=== PATIENT | female | born 1955 | race Caucasian/White ===

== ENCOUNTER 2024-03-28 09:21 | Outpatient (CLI) | payer MEDICARE, SELFPAY ==
--- NOTE | ~2024-03-28 | XR_ITS ---
AP and lateral views of the left hip Clinical history: Pain Findings: There are 3orthopedic screws traversing the left femoral neck. No acute fracture or disloca tion seen. No hardware complication is evident.. There is minimal degenerative change of the left hip joint. Soft tissues are unremarkable. Impression: No acute abnormality. Orthopedic screws in the left femoral neck. Minimal degenerative change of the left hip joint. Reviewed, dictated and finalized at location [facility] Impression: No acute abnormality. Orthopedic screws in the left femoral neck. Minimal degenerative change of the left hip joint.
--- NOTE | ~2024-03-28 | XR_ITS ---
Lumbosacral Spine: AP, oblique, and lateral views Clinical History: Pain Findings: The normal lordotic curve is maintained. No fracture seen. There is minimal grade 1 anterol isthesis of L3 over L4. There is moderate to advanced facet arthropathy, worst from L4 through S1. Th e sacroiliac joints are normally outlined. Impression: [id number] degenerative spondylosis, as above. Minimal grade 1 retrolisthesis of L3 over L4. Reviewed, dictated and finalized at location [facility] Impression: Cpdg-[id number] degenerative spondylosis, as above. Minimal grade 1 retrolisthesis of L3 over L4.
--- OUTSIDE RECORDS SUMMARY | 2024-03-28 09:32 | XMS_ITS | Referral Summary ---
Author Organization [address] Address [address] [place] [address] Care Team Providers Care Carding Machine Feeder Name Role Phone Blanca Diego MD Primary Care Provider [phone] Allergies No known active allergies Medications lisinopril-hydroCH LOROthiazide (ZESTORETIC) 10-12.5 mg per tablet 07/29/2019 Active Zoloft 50 mg tablet 07/30/2019 Active Active Problems Problem Noted Date Diagnosed Date Epistaxis 08/06/2019 Blood in ear canal, right 08/06/2019 Social History Tobacco Use Types Packs/Day Years Used Date Smoking Tobacco: Former Smokeless Tobacco: Never Alcohol Use Standard Drinks/Week Comments Yes 0 (1 standard drink = 0.6 oz pur e alcohol) Personal Safety Answer Date Recorded Getting School Help Needed Not on file 04/23 Comments Unknown Sex and Gender Information Value Date Recorded Sex Assigned at Not on file 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 Gender Identity Not on file Sexual Orientation Not on file Last Filed Vital Signs Vital Sign Reading Time Taken Comments Blood Pressure - - Pulse - - Temperature 37 C (98.6 F) 08/06/2019 1:25 PM CDT Respiratory Rate - - Oxygen Saturation - - Inhaled Oxygen Concentration - - Weight 99.8 kg (220 lb) 08/06/2019 1:25 PM CDT Height 167.6 cm (5' 6 ) 08/06/2019 1:25 PM CDT Body Mass Index 35.51 08/06/2019 1:25 PM CDT Plan of Treatment Not on file Insurance [facility] CHOICE PLUS Care Teams Carding Machine Feeder Relationship Specialty Start Date End Date Blanca Diego MD PCP - General Family Practice 07/25/19
--- OUTSIDE RECORDS SUMMARY | 2024-03-28 09:32 | XMS_ITS | Referral Summary ---
Author Organization [facility] Address [address] [place] [address] Care Team Providers Care Secretary Receptionist Name Role Phone Scott Adan MD Primary Care Provider [phone] Shayna Florez RN Unavailable Unavailable Hawk Romero MD Unavailable UnavailJason Lara MD Unavailable Source Comments [facility],non-owned Affiliates and Associated Physician Practices is amultiple site organization consisting of ambulatory clinics and hospital sitesin [place], [place], [place] and [place]. This disclosure is being madepursuant to the Care Everywhere program and may not contain all information available regarding this patient. Last updated 17.[facility] Allergies No known active allergies Medications * Be aware that medications may not be up to date on this document. Alwaysverify current medications with the patient. Medication Sig Dispensed Refills Start Date End Date Status sertraline (ZOLOFT) 50 MG tablet Take 50 mg by mouth once daily Active simvastatin (ZOCOR) 20 MG tablet Take 20 mg by mouth at bedtime Active lisinopril (PRINIVIL; ZESTRIL) 10 MG tablet Take 10 mg by mouth once daily Active oxyCODONE-acetamin ophen (PERCOCET) 5-325 MG tablet Take 2 tablets by mouth every 6 hours 40 tablet 02/22/2017 Active Additional Information Patient not taking.Reported on 04/28/2017 docusate sodium (COLACE) 100 MG capsule Take 1 capsule by mouth 2 times daily as needed for Constipation 60 capsule 1 02/22/2017 Active Additional Information Patient not taking.Reported on 04/28/2017 ibuprofen (MOTRIN) 600 MG tablet Take 1 tablet by mouth every 6 hours as needed for Pain 60 tablet 1 02/22/2017 Active Additional Information Patient not taking.Reported on 04/28/2017 docusate sodium (COLACE) 100 MG capsule Take 1 capsule by mouth 2 times daily 60 capsule 1 02/22/2017 Active Additional Information Patient not taking.Reported on 04/28/2017 Active Problems Problem Noted Date Diagnosed Date Endometrial cancer 02/21/2017 Social History Tobacco Use Types Packs/Day Years Used Date Smoking Tobacco: Former Cigarettes Q uit: 02/21/2002 Smokeless Tobacco: Current Comments:nicorette gum Alcohol Use Standard Drinks/Week Comments Yes 0 (1 standard drink = 0.6 oz pur e alcohol) weekends Sex and Gender Information Value Date Recorded Sex Assigned at Not on file Gender Identity Female 04/18/2017 11:27 AM CDT Sexual Orientation Not on file Last Filed Vital Signs Vital Sign Reading Time Taken Comments Blood Pressure 161/84 04/28/2017 11:15 AM CDT Pulse 80 04/28/2017 11:15 AM CDT Temperature 36.5 C (97.7 F) 04/28/2017 11:15 AM CDT Respiratory Rate 15 04/28/2017 11:15 AM CDT Oxygen Saturation 97% 04/28/2017 11:15 AM CDT Inhaled Oxygen Concentration - - Weight 118.4 kg (261 lb) 04/28/2017 11:15 AM CDT Height 167.6 cm (5' 5.98 ) 04/28/2017 11:15 AM C DT Body Mass Index 42.15 04/28/2017 11:15 AM CDT Plan of Treatment Not on file Procedures Procedure Name Priority Date/Time Associated Diagnosis Comments BASIC METABOLIC PANEL (CALCIUM TOTAL) STAT 02/22/2017 5:34 AM [facility] Endometrial cancer (HCC) from Last 3 Months or Most Recently Relevant to Health Maintenance Results * (ABNORMAL) BASIC METABOLIC PANEL (CALCIUM TOTAL) (02/22/2017 5:34 AM [facility]) Glucose 127(H) 74 - 106 mg/dL 02/22/2017 6:07 AM [facility] Sodium 138 136 - 145 mmol/L 02/22/2017 6:07 AM [facility] Potassium 4.8 3.5 - 5.1 mmol/L 02/22/2017 6:07 AM [facility] Chloride 105 98 - 107 mmol/L 02/22/2017 6:07 AM [facility] CO2 29 22 - 31 mmol/L 02/22/2017 6:07 AM [facility] Calcium 7.8(L) 8.5 - 10.1 mg/dL 02/22/2017 6:07 AM [facility] Anion Gap 4(L) 8 - 16 mmol/L 02/22/2017 6:07 AM [facility] BUN 11 7 - 21 mg/dL 02/22/2017 6:07 AM [facility] Creatinine 0.73 0.50 - 1.30 mg/dL 02/22/2017 6:07 AM [facility] eGFR by MDRD >60 >60 mL/min/1.7 3m2 02/22/2017 6:07 AM [facility] eGFR by MDRD >60 >60 mL/min/1.7 3m2 02/22/2017 6:07 AM [facility] Blood BLOOD SPECIMEN / Unknown Lab Venipuncture / Unknown 02/22/2017 5:34 AM [facility] 02/22/2017 5:43 AM [facility] Nancie Solorio MD LAB - CHEMISTRY [facility]Y [facility]ER[facility] Organization Address City/State/[facility] Co de Phone Number [facility] [address] [id number] from Last 3 Months or Most Recently Relevant to Health Maintenance Advance Directives * Full Code (Latest Code Status on File) Date Activated Date Inactivated Comments 02/21/2017 8:10 PM 02/22/2017 6:04 PM Care Teams Secretary Receptionist Relationship Specialty Start Date End Date Scott Adan MD [address] [place] [address] PCP - General Family Medicine 02/21/17 Shayna Florez, RN Registered Nurse 02/21/17 Hawk Romero MD Referring Physician Surgical Oncology 04/13/17 Jason Rea MD Radiation Oncologist Radiation Oncology 04/13/17
--- OUTSIDE RECORDS SUMMARY | 2024-03-28 09:32 | XMS_ITS | Clinical Summary ---
Author Organization [email or web address] Address [address] [place] [address] Care Team Providers Care Denture Processor Name Role Phone Scott Adan MD Primary Care Provider [phone] Shayna Florez RN Unavailable Unavailable Hawk Romero MD Unavailable UnavailJason Lara MD Unavailable [phone] Source Comments [email or web address],non-owned Affiliates and Associated Physician Practices is amultiple site organization consisting of ambulatory clinics and hospital sitesin [place], [place], [place] and [place]. This disclosure is being madepursuant to the Care Everywhere program and may not contain all information available regarding this patient. Last updated 17.[email or web address] Allergies No known active allergies Medications * [...] 04/28/2017 11:15 AM CDT Plan of Treatment Health Maintenance Due Date Last Done Comments BONE DENSITY TESTING 1957 COLOGUARD (AGES 45-75) - COL ON CA SCREENING 1957 COLON MONITORING 1957 COLONOSCOPY - COLON CA SCREENING 1957 CT COLONOGRAPHY - COLON CA SCREENING 1957 Colorectal Cancer Screening 1957 FIT - COLON CA SCREENING 1957 FLEX SIG - COLON CA SCREENING 1957 MAMMOGRAM 1957 HEPATITIS C SCREENING 01/26/1975 DTAP/TDAP/TD VACCINES (1 - Tdap) 01/31/1976 PNEUMOCOCCAL VACCINE 50+ (1 of 1 - PCV) 2007 ZOSTER VACCINE (1 of 2) 2007 Respiratory Syncytial Virus (RSV) Vaccine Pt: or over 60 yrs (1 - Risk 60-74 years 1-dose series) 2017 SCREENING FOR DIABETES 02/23/2020 8, 02/21/2017 COVID-19 VACCINE (1 - 2023-2 5 season) 2023 INFLUENZA VACCINE (#1) 2023 DEPRESSION SCREENING 02/08/2024 HEPATITIS B VACCINE Aged Out No longe r eligible based on patient's age to complete this topic HIB VACCINE Aged Out No longer eligi ble based on patient's age to complete this topic HPV VACCINE Aged Out No longer eligi ble based on patient's age to complete this topic MENINGOCOCCAL (Group B) VACCINE Aged Out No longer eligible b ased on patient's age to complete this topic MENINGOCOCCAL VACCINE Aged Out No suzi nav eligible based on patient's age to complete this topic Procedures Procedure Name Priority Date/Time Associated Diagnosis Comments BASIC METABOLIC PANEL (CALCIUM TOTAL) STAT 02/22/2017 5:34 AM [facility] Endometrial cancer (HCC) from Last 3 Months or Most Recently Relevant to Health Maintenance Results * (ABNORMAL) BASIC METABOLIC PANEL (CALCIUM TOTAL) (02/22/2017 5:34 AM [facility]) Glucose 127(H) 74 - 106 mg/dL 02/22/2017 6:07 AM [facility] Sodium 138 136 - 145 mmol/L 02/22/2017 6:07 AM [facility] Potassium 4.8 3.5 - 5.1 mmol/L 02/22/2017 6:07 AM [facility] Chloride 105 98 - 107 mmol/L 02/22/2017 6:07 AM [facility] CO2 29 22 - 31 mmol/L 02/22/2017 6:07 AM [facility] Calcium 7.8(L) 8.5 - 10.1 mg/dL 02/22/2017 6:07 AM [facility] Anion Gap 4(L) 8 - 16 mmol/L 02/22/2017 6:07 AM [facility] BUN 11 7 - 21 mg/dL 02/22/2017 6:07 AM [facility] Creatinine 0.73 0.50 - 1.30 mg/dL 02/22/2017 6:07 AM [facility] eGFR by MDRD >60 >60 mL/min/1.7 3m2 02/22/2017 6:07 AM [employer] [facility] eGFR by MDRD >60 >60 mL/min/1.7 3m2 02/22/2017 6:07 AM [facility] Blood BLOOD SPECIMEN / Unknown Lab Venipuncture / Unknown 02/22/2017 5:34 AM [facility] [facility] 02/22/2017 5:43 AM [facility] [facility] [facility] Nancie Solorio MD LAB - CHEMISTRY AMY [facility]ERMIN [facility] [address] [place] [address] from Last 3 Months or Most Recently Relevant to Health Maintenance Advance Directives * Full Code (Latest Code Status on File) Date Activated Date Inactivated Comments 02/21/2017 8:10 PM 02/22/2017 6:04 PM Care Teams Denture Processor Relationship Specialty Start Date End Date Scott Adan MD [address] [place] [address] PCP - General Family Medicine 02/21/17 Shayna Florez, TREE Registered Nurse 02/21/17 Hawk Romero MD Referring Physician Surgical Oncology 04/13/17 Jason Rea MD Radiation Oncologist Radiation Oncology 04/13/17
--- OUTSIDE RECORDS SUMMARY | 2024-03-28 09:32 | XMS_ITS | Clinical Summary ---
Author Organization [place] [address] Address [address] [place] [address] Care Team Providers Care Sheep Sorter Name Role Phone Blanca Diego MD Primary Care Provider [phone] Allergies No known active allergies Medications lisinopril-hydroCH LOROthiazide (ZESTORETIC) 10-12.5 mg per tablet 07/29/2019 Active Zoloft 50 mg tablet 07/30/2019 Active Active Problems Problem Noted Date Diagnosed Date Epistaxis 08/06/2019 Blood in ear canal, right 08/06/2019 Surgical History Surgery Date Site/Laterality Comments HYSTERECTOMY HIP FRACTURE SURGERY Left ECTOPIC Medical History Medical History Date Comments Allergic rhinitis Cancer (CMS/HCC) (HCC) Hypertension Hx of radiation therapy Sinusitis Family History Medical History Relation Name Comments No Known Problems Father No Known Problems Mother Relation Name Status Comments Father Mother Social History Tobacco Use Types Packs/Day Years [...] on file 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
--- OUTSIDE RECORDS SUMMARY | 2024-03-28 09:32 | XMS_ITS | Patient Health Summary ---
Author Organization [facility] Address [address] [place] [address] Care Team Providers Care Cytogeneticist Name Role Phone Scott Adan MD Primary Care Provider [phone] Shayna Florez RN Unavailable Unavailable Hawk Romero MD Unavailable UnavailJason Lara MD Unavailable [phone] Note from [facility],non-owned Affiliates and Associated Physician Practices is amultiple site organization consisting of ambulatory clinics and hospital sitesin [place], [place], [place] and [place]. This disclosure is being madepursuant to the Care Everywhere program and may not contain all information available regarding this patient. Last updated 17.[facility] Allergies No known active allergies Medications * Be aware that medications may not be up to date on this document. Alwaysverify current medications with the patient. * sertraline (ZOLOFT) 50 MG tablet Take 50 mg by mouth once daily * simvastatin (ZOCOR) 20 MG tablet Take 20 mg by mouth at bedtime * lisinopril (PRINIVIL; ZESTRIL) 10 MG tablet Take 10 mg by mouth once daily * oxyCODONE-acetaminophen (PERCOCET) 5-325 MG tablet(Started 02/22/2017) Take 2 tablets by mouth every 6 hours * docusate sodium (COLACE) 100 MG capsule(Started 02/22/2017) Take 1 capsule by mouth 2 times daily as needed for Constipation 1 refill remaining * ibuprofen (MOTRIN) 600 MG tablet(Started 02/22/2017) Take 1 tablet by mouth every 6 hours as needed for Pain 1 refill remaining * docusate sodium (COLACE) 100 MG capsule(Started 02/22/2017) Take 1 capsule by mouth 2 times daily 1 refill remaining Active Problems Problem Noted Date Diagnosed Date [...] Mass Index 42.15 04/28/2017 11:15 AM CDT Procedures * RADIATION ONCOLOGY EVALUATION(Performed 05/25/2017) * RADIATION ONCOLOGY EVALUATION(Performed 05/18/2017) * RADIATION ONCOLOGY EVALUATION(Performed 05/12/2017) * LAB HISTORICAL RESULTS-ONBASE(Performed 04/20/2017) * MMR SAMUELS SYNDROME IHC(Performed 03/23/2017) Performed for Endometrial cancer (HCC) * CARDIAC RHYTHM STRIP ORDER(Performed 02/23/2017) * BASIC METABOLIC PANEL (CALCIUM TOTAL)(Performed 02/22/2017) Performed for Endometrial cancer (HCC) * CREATININE URINE RANDOM(Performed 02/22/2017) Performed for Endometrial cancer (HCC) * SODIUM URINE RANDOM(Performed 02/22/2017) Performed for Endometrial cancer (HCC) * PATHOLOGY TISSUE EXAM (STL)(Performed 02/21/2017) Performed for Endometrial cancer (HCC) * ENDOTRACHEAL TUBE NOTE(Performed 02/21/2017) * ROBOTIC ASSISTED LYMPH NODE DISSECTION(Performed 02/21/2017) Performed for Endometrial cancer (HCC) * CYSTOSCOPY INSERTION OF LIGHTED URETERAL STENT(Performed 02/21/2017) Performed for Endometrial cancer (HCC) * ROBOTIC ASSISTED HYSTERECTOMY TOTAL(Performed 02/21/2017) Performed for Endometrial cancer (HCC) * TYPE + SCREEN PANEL(Performed 02/21/2017) Performed for Preop examination * URINE MICROSCOPIC ONLY(Performed 02/21/2017) Performed for Preop examination * URINALYSIS REFLEX TO MICROSCOPIC NO CULTURE(Performed 02/21/2017) Performed for Preop examination * COMPREHENSIVE METABOLIC PANEL(Performed 02/21/2017) Performed for Preop examination * CBC W AUTO DIFFERENTIAL(Performed 02/21/2017) Performed for Preop examination * BLOOD TYPE VERIFICATION(Performed 02/21/2017) * PATHOLOGY/GENETICS HISTORICAL-ONBASE(Performed 02/21/2017) * PATHOLOGY/GENETICS HISTORICAL-ONBASE(Performed 02/21/2017) * PATHOLOGY/GENETICS HISTORICAL-ONBASE(Performed 02/21/2017) Results * RADIATION ONCOLOGY EVALUATION (05/25/2017 12:00 PM CDT) 05/25/2017 12:0 0 PM CDT Narrative Procedure Note Jason Rea MD - 05/26/2017 2:22 AM CDT [facility] Department of Radiation Oncology Procedure Note PATIENT NAME: GRIFFIN SNEED MR#: [id number] AGE: 62 CSN: [id number] ADMIT: 05/11/2017 : 1955 DATE: 05/25/2017 ROOM#: Ms. Sneed underwent her third and final vaginal cylinder implant todeliver 700 cGy to a depth of 0.5 cm over a length of 3 cm with a 2 cm indiameter vaginal cylinder. A 2 cc of bladder received 59% of the prescribed dose,2 cc of the rectum received 60% of the prescribed dose. Total treatment timewas 216 seconds. She tolerated her radiation well without significantevent. There was no additional radiation detected before and after the procedure.As she has adequate followup scheduled with Dr. Romero, she will continue to follow up with him. She may return to our department anytime on ap.r.n. basis. Jason Rea MD RGS/MODL /[id number] Radiation Oncology - Jason Rea MD RADIATION ONCOLOGY O [facility] * RADIATION ONCOLOGY EVALUATION (05/18/2017 12:00 PM CDT) 05/18/2017 12:0 0 PM CDT Narrative Procedure Note Jason Rea MD - 05/18/2017 12:39 PM CDT [facility] Department of Radiation Oncology Procedure Note PATIENT NAME: GRIFFIN SNEED MR#: [id number] AGE: 62 CSN: [id number] ADMIT: 05/11/2017 : 1955 DATE: 05/18/2017 ROOM#: Ms. Sneed underwent the second of 3-planned vaginal cylinder implantsto deliver 700 cGy to a depth of 0.5 cm. A 2 cm in diameter vaginal cylinderwas used and loaded to a length of 3 cm. A 2 cc of bladder received 60% of prescribed dose, a 2 cc of the rectum received 40.5% of the prescribeddose. Total treatment time was 202.7 seconds. She tolerated the procedurewell. She was surveyed both before and after the procedure. No additionalradiation was detected. She is to return next week for her third and finalimplant. MD ELIZABETH Briceño/BORIS /[id number] Radiation Oncology - Jason Rea MD RADIATION ONCOLOGY O [facility] * RADIATION ONCOLOGY EVALUATION (05/12/2017 8:11 AM CDT) Narrative Procedure Note Jason Rea MD - 05/12/2017 5:14 AM CDT [facility] Department of Radiation Oncology Procedure Note PATIENT NAME: GRIFFIN SNEED MR#: [id number] AGE: 62 CSN: [id number] ADMIT: 05/11/2017 : 1955 DATE: ROOM#: Ms. Sneed presented for the first of 3 planned HDR vaginal cylinder implants. A 2 cm in diameter vaginal cylinder was used loaded to a lengthof 3 cm and treated to 700 cGy to a depth of 0.5 cm. A 2 cc of bladderreceived 64% of the prescribed dose. A 2 cc of the rectum received 75% ofprescribed dose. Total treatment time was 475 seconds. She tolerated the procedurewell without significant event and/or complication. She is to return to our department in 1 week for her second implant or sooner should the needarise. Jason Rea MD RGS/MODL /[id number] Radiation Oncology - Jsaon Rea MD RADIATION ONCOLOGY O [place] * LAB HISTORICAL RESULTS-ONBASE (04/20/2017) 04/20/2017 Historical Provider LAB - CHEMISTRY O [place] [address] * MMR SAMUELS SYNDROME IHC (03/23/2017 3:07 PM INDEPENDENT VIDEO PRODUCER) MMR Samuels Syndrome IHC 04/20/2017 10:22 AM CDT [facility] REF LAB NON INTERF Comment:See Pathology Case R eport. [id number] Pathology/Cytolo gy TISSUE SPECIMEN / Unknown Collection / Unknown 03/23/2017 3:07 PM INDEPENDENT VIDEO PRODUCER 03/23/2017 3:07 PM INDEPENDENT VIDEO PRODUCER Hawk Romero MD LAB - PATHOLOGY/CYT OLOGY ORDERABLES Performing Organization Address City/[facility]/ZIP Co de Phone Number [facility] REF LAB NON INTERF [address] [phone] * CARDIAC RHYTHM STRIP ORDER (02/23/2017 10:29 PM INDEPENDENT VIDEO PRODUCER) Narrative 02/23/2017 10:29 PM INDEPENDENT VIDEO PRODUCER Ordered by an unspecified provider. Scanned Document CARDIAC SERVICES ORD ERABLES * (ABNORMAL) BASIC METABOLIC PANEL (CALCIUM TOTAL) (02/22/2017 5:34 AM INDEPENDENT VIDEO PRODUCER) Glucose 127(H) 74 - 106 mg/dL 02/22/2017 6:07 AM [facility] Sodium 138 136 - 145 mmol/L 02/22/2017 6:07 AM [facility] Potassium 4.8 3.5 - 5.1 mmol/L 02/22/2017 6:07 AM [facility] Chloride 105 98 - 107 mmol/L 02/22/2017 6:07 AM [facility] CO2 29 22 - 31 mmol/L 02/22/2017 6:07 AM [facility] Calcium 7.8(L) 8.5 - 10.1 mg/dL 02/22/2017 6:07 AM [facility] Anion Gap 4(L) 8 - 16 mmol/L 02/22/2017 6:07 AM [facility] BUN 11 7 - 21 mg/dL 02/22/2017 6:07 AM [facility] Creatinine 0.73 0.50 - 1.30 mg/dL 02/22/2017 6:07 AM [facility] eGFR by MDRD >60 >60 mL/min/1.7 3m2 02/22/2017 6:07 AM [facility] eGFR by MDRD >60 >60 mL/min/1.7 3m2 02/22/2017 6:07 AM [facility] Blood BLOOD SPECIMEN / Unknown Lab Venipuncture / Unknown 02/22/2017 5:34 AM INDEPENDENT VIDEO PRODUCER 02/22/2017 5:43 AM [facility] Nancie Solorio MD LAB - CHEMISTRY AMY FERMIN [facility] [address] [place] [address] * SODIUM URINE RANDOM (02/22/2017 2:52 AM INDEPENDENT VIDEO PRODUCER) Sodium Urine 31 mmol/L 02/22/2017 3:38 AM INDEPENDENT VIDEO PRODUCER [facility] Urine URINE SPECIMEN OBTAINED BY CLEAN CATCH PROCEDURE / Unknown Collection / Unknown 02/22/2017 2:52 AM INDEPENDENT VIDEO PRODUCER 02/22/2017 3:10 AM INDEPENDENT VIDEO PRODUCER Nancie Solorio MD LAB - URINE CHEMISTR Y ORDERABLES Performing Organization Address [facility] Co de Phone Number [facility] [address] [place] [address] * CREATININE URINE RANDOM (02/22/2017 2:52 AM INDEPENDENT VIDEO PRODUCER) Creatinine Urine 230 mg/dL 02/22/2017 3:38 AM INDEPENDENT VIDEO PRODUCER [facility] Urine URINE SPECIMEN OBTAINED BY CLEAN CATCH PROCEDURE / Unknown Collection / Unknown 02/22/2017 2:52 AM INDEPENDENT VIDEO PRODUCER 02/22/2017 3:10 AM INDEPENDENT VIDEO PRODUCER Nancie Solorio MD LAB - URINE CHEMISTR Y ORDERABLES Performing Organization Address [facility] Co de Phone Number [facility] [address] [place] [phone] * GROSS + MICRO EXAM (STL) (02/21/2017 2:19 PM INDEPENDENT VIDEO PRODUCER) Case Report Surgical Pathology Report Case: [id number] Authorizing Provider: Hawk Romero MD Collected: 02/21/2017 02:19 PM Ordering Location: [facility] INTRA Received: 02/21/2017 02:45 PM Pathologist: Jacqueline Garcia MD Specimens: A) - Uterus w BSO, uterus, cervix, bilateral tubes and ovaries B) - Pelvic Lymph Nodes, pelvic lymph nodes 8 9:47 AM CDT [facility] Addendum 2 Correction: In the microscopic description, the second sentence in the fifth line should read: There is no evidence of lymphovascular permeation. 8 9:47 AM CDT [facility] Addendum electronically signed by Myesha Jauregui MD on 04/28/2017 at 9:47 AM Addendum 1 Results of immunohistochemistry for the mismatch repair (MMR) proteins (MLH1, PMS2, MSH2, MSH6) are as follows: MLH1: No loss of expression (tumor stained: 10%; Intensity: moderate to strong ) PMS2: No loss of expression (tumor stained: 10%; Intensity: moderate to strong ) MSH2: No loss of expression (tumor stained: 15%; Intensity: moderate to strong ) MSH6: No loss of expression (tumor stained: 25%; Intensity: moderate to strong ) All four proteins expressed (Normal): The invasive carcinoma cells demonstrate the presence of normal MLH1, PMS2, MSH2, and MSH6 protein expression. Expression of all four proteins indicates that mismatch repair enzymes are intact but does not entirely exclude Samuels syndrome, as some patients may have mutation that leads to a non-functional protein with retained antigenicity. Defects in lesser-known mismatch repair enzymes may also lead to similar results, which are nonetheless, rare. If clinically indicated, a genetic consultation may be of benefit for the individual and/or family to further discuss the implications of these findings. 8 9:[address] [facility] Addendum electronically signed by Myesha Jauregui MD on 03/29/2017 at 4:17 PM Final Diagnosis 1. Uterus with bilateral tubes and ovaries: -- Endometrioid adenocarcinoma, grade 3 -- Focal myoinvasion less than 1 mm -- pT1a,pN0,pm-not applicable FIGO1A -- No evidence of angiolymphatic permeation by tumor -- Cervix - no tumor involvement -- Right fallopian tube and ovary - no pathologic changes -- Left fallopian tube and ovary - no pathologic changes -- 2. Pelvic lymph nodes, dissection: -- Negative for malignancy (19 of 19). SEE SYNOPTIC REPORT 8 9:[address] [facility] Gross Description The specimen is received fresh in one container labeled with the patient's name Griffin Sneed and uterus, cervix, bilateral tubes and ovaries and consists of a 176.2 gm uterine cervical complex with attached bilateral fallopian tubes and ovaries. The uterine cervical complex measures 10.4 cm from fundus to cervix x 6.5 cm from cornu to cornu x 6.0 cm from anterior to posterior. The serosa is pink-bush smooth and glistening. The cervix is white-pink and glistening and measures 3.4 x 2.4 cm with a central oval shaped os measuring 0.6 cm in diameter. The white fallopian tube is purple-pink and fimbriated while the left fallopian tube is purple-pink with no fimbria attached. There are multiple paratubal cysts attached to the right fallopian tube ranging in greatest dimension from 0.6 to 0.2 cm and filled with thin translucent fluid. The right tube measures 7.5 cm in length x 0.6 cm in diameter while the left fallopian tube measures 1.4 cm in length x 0.5 cm in diameter. The ovaries are pink-bush and nodular. The right ovary weighs 4.2 gm and measures 3.5 x 1.7 x 1.2 cm. The left ovary is 4.3 gm, and measures 3.5 x 2. X 1.2 cm. Cut surface through the cervix reveals rubbery, pink-bush tissue. The uterus is bisected revealing a 3.2 x 5.4 cm triangular shaped endometrial cavity with shaggy and roughened, pink-bush endometrium measuring up to 1.5 cm in thickness. A 3.2 x 2.9 x 1.5 cm bush-pink mass is identified on cut surface through the endometrial cavity. The mass does not grossly invade through 50% of the myometrium. The remaining cut surface demonstrates rubbery, pink-bush myometrium measuring up to 2.4 cm in thickness on average. A access service representative section of the mass in the anterior endomyometrium is submitted for frozen section as FSA1. The mass appears more invasive into the anterior half of the uterus than the posterior half of the uterus. The cut surface through the fallopian tubes reveals unremarkable pinpoint lumens. Cut surface through the ovaries reveals nodule, mottled, bush-pink ovarian tissue with no gross evidence of mass or tumor formation. Dental Detail Representative sections are submitted as follows: A2 - 12 o'clock cervix A3 - 6 o'clock cervix A4 - Additional section of anterior endomyometrium and its greatest thickness of the mass A5 and A6 - Posterior endomyometrium A7 and A8 - Right fallopian tube and ovary A9 and A10 - Left fallopian tube and ovary. MR/scs The specimen is received fixed in formalin in one container, labeled with the patient's name, Griffin Sneed, and pelvic lymph nodes, consists of multiple portions of irregular, yellow fatty tissue measuring 7.4 x 7.2 x 1.1 cm in aggregate. The specimen is thoroughly searched for lymph nodes revealing numerous lymph nodes ranging from 2.1 to 0.4 cm in greatest dimension. The lymph nodes are entirely submitted in cassettes B1-B6. CIRO/catherine 8 9:[address] [facility] Microscopic Description Permanent section FSA1 is confirmed. pT1a0 pN - not applicable, FIGO IA The endometrium contains a large endometrioid adenocarcinoma, grade 3. It is characterized by fused endometrial glands composed of cells with vesicular nuclei and conspicuous nucleoli. A cribriform arrangement of glands with focal necrosis is identified. Solid growth appears to be greater than 50%. There is no evidence of serous or clear cell carcinoma. The tumor has a pushing rounded advancing edge with microfoci most consistent with very early, less than 1 mm of invasion. There is angiolymphatic permeation by tumor. The uninvolved endometrium reveals a proliferative pattern. The tumor does not extend to the cervix, it shows no evidence of dysplasia or neoplasia. The right tube and ovary show no pathologic changes. The left tube and ovary is likewise unremarkable. A total of 19 pelvic lymph nodes are examined and reveal no evidence of malignancy. Shaylee 8 9:[address] [facility] Disclaimer All histochemical and/or immunohistochemical results are interpreted with controls that demonstrate appropriate staining reactions before reporting results. Note on use of immunocytochemistry reagents: This test was developed and its performance characteristic determined by [facility], Department of Laboratory Medicine. It has not been cleared or approved by the U.S. Food and Drug Administration (FDA). The FDA has determined that such clearance or approval is not necessary. The test is used for clinical purpose. It should not be regarded as investigational or for research. This laboratory is certified to perform high complexity testing. 8 9:[address] [facility] Synoptic Report ENDOMETRIUM (ENDOMETRIUM: HYSTERECTOMY - All Specimens) SPECIMEN Procedure: Total abdominal hysterectomy and bilateral salpingo-oophorectomy Hysterectomy Type: Laparoscopic, robotic-assisted Specimen Integrity: Intact TUMOR Tumor Site: Endometrium Histologic Type: Endometrioid carcinoma, NOS Histologic Grade: FIGO grade 3 Tumor Size: Greatest dimension in Centimeters (cm): 3.2 Centimeters (cm) Additional Dimension in Centimeters (cm): 2.9 Centimeters (cm) Additional Dimension in Centimeters (cm): 1.5 Centimeters (cm) Myometrial Invasion: Present Depth of Invasion in Millimeters (mm): 1 Millimeters (mm) Myometrial Thickness in Millimeters (mm): 1.5 Millimeters (mm) Percentage of Myometrial Invasion: 1 % Adenomyosis: Not identified Uterine Serosa Involvement: Not identified Lower Uterine Segment Involvement: Not identified Cervical Stromal Involvement: Not identified Other Tissue / Organ Involvement: Not applicable Peritoneal Ascitic Fluid: Not submitted / unknown Lymphovascular Invasion: Not identified MARGINS LYMPH NODES Regional Lymph Nodes: Pelvic Lymph Nodes: Number of Pelvic Nodes with Macrometastasis: 0 Number of Pelvic Nodes with Micrometastasis: 0 Number of Pelvic Nodes with Isolated Tumor Cells: 0 Laterality of Pelvic Node(s) with Tumor: Cannot be determined Total Number of Pelvic Node(s) Examined (sentinel and nonsentinel): 19 Number of Pelvic [place] Nodes Examined: 0 Laterality of Pelvic Node(s) Examined: Cannot be determined Para-aortic Lymph Nodes: No para-aortic nodes submitted or found PATHOLOGIC STAGE CLASSIFICATION (pTNM, AJCC 8th Edition) Primary Tumor (pT): pT1a Category (pN): pN0 FIGO STAGE FIGO Stage: IA ADDITIONAL FINDINGS Additional Pathologic Findings: None identified 8 9:47 AM T [facility] Embedded Images 8 9:[address] [facility] Pathology/Cytology HYSTERECTOMY AND BILATERAL SALPINGO-OOPHORECTO MY SPECIMEN / Unknown 02/21/2017 2:19 PM INDEPENDENT VIDEO PRODUCER 02/21/2017 2:45 PM INDEPENDENT VIDEO PRODUCER Miscellaneous samples (specimen) PELVIC LYMPH NODES SAMPLING / Unknown 02/21/2017 3:17 PM INDEPENDENT VIDEO PRODUCER 02/22/2017 8:02 AM INDEPENDENT VIDEO PRODUCER Hawk Romero MD LAB - PATHOLOGY/CYT OLOGY ORDERABLES [facility] [address] [place] [address] * (ABNORMAL) URINALYSIS ROUTINE AUTO Urine Clean Catch (02/21/2017 9:53 AM INDEPENDENT VIDEO PRODUCER) Color UA Yellow Straw, Yellow 02/21/2017 12:19 PM INDEPENDENT VIDEO PRODUCER [facility] Clarity UA Slt Cloudy(A) Clear 02/21/2017 12:19 PM [facility] Glucose UA Negative Negative 02/21/2017 12:19 PM [facility] Bilirubin UA Negative Negative 02/21/2017 12:19 PM [facility] Ketone UA Negative Negative 02/21/2017 12:19 PM [facility] Specific [place] UA 1.023 1.005 - 1.030 02/21/2017 12:19 PM [facility] Blood UA 2+(A) Negative 02/21/2017 12:19 PM [facility] pH UA 6.0 5.0 - 8.0 pH 02/21/2017 12:19 PM [facility] Protein UA Negative Negative 02/21/2017 12:19 PM [facility] Urobilinogen UA Negative Negative mg/dL 02/21/2017 12:19 PM [facility] Nitrite UA Negative Negative 02/21/2017 12:19 PM [facility] Leukocyte UA Trace(A) Negative 02/21/2017 12:19 PM [facility] Urine Microscopy Urine microscopy to follow 02/21/2017 12:19 PM [facility] Urine URINE SPECIMEN OBTAINED BY CLEAN CATCH PROCEDURE / Unknown Collection / Unknown 02/21/2017 9:53 AM INDEPENDENT VIDEO PRODUCER 02/21/2017 11:59 AM [facility] Narrative [facility] - 02/21/2017 12:19 PM INDEPENDENT VIDEO PRODUCER Authorizing Provider Result Ronen Romero MD LAB - URINALYSIS OR DERABLES Performing Organization Address City/State/[facility] Co de Phone Number [facility] [address] [place], [place] [id number] * (ABNORMAL) URINALYSIS MICROSCOPIC ONLY (02/21/2017 9:53 AM INDEPENDENT VIDEO PRODUCER) RBC UA 0-5 0-5, None Seen # /hpf 02/21/2017 12:27 PM [facility] WBC UA 6-10(A) 0-5, None Seen # /hpf 02/21/2017 12:27 PM [facility] Bacteria UA None Seen None Seen 02/21/2017 12:27 PM [facility] Squamous Epithelial Cells 6-10(A) None Seen, 0-2, 3-5 /hpf 02/21/2017 12:27 PM [facility] Mucus UA 3+ /LPF 02/21/2017 12:27 PM [facility] Urine URINE SPECIMEN OBTAINED BY CLEAN CATCH PROCEDURE / Unknown Collection / Unknown 02/21/2017 9:53 AM INDEPENDENT VIDEO PRODUCER 02/21/2017 11:59 AM INDEPENDENT VIDEO PRODUCER Narrative [facility] - 02/21/2017 12:27 PM INDEPENDENT VIDEO PRODUCER Hawk Romero MD LAB - URINALYSIS OR DERABLES Performing Organization Address City/[facility]/ZIP Co de Phone Number [facility] [address] [place] [address] * TYPE + SCREEN PANEL (02/21/2017 9:53 AM INDEPENDENT VIDEO PRODUCER) ABO A 02/21/2017 10:49 AM [facility] Rh Type Positive 02/21/2017 10:49 AM [facility] Antibody Screen Negative 02/21/2017 10:49 AM [facility] Blood Bank BLOOD SPECIMEN / Unknown Venipuncture / Unknown 02/21/2017 9:53 AM INDEPENDENT VIDEO PRODUCER 02/21/2017 10:09 AM INDEPENDENT VIDEO PRODUCER Hawk Romero MD LAB - BLOOD BANK OR DERABLES Performing Organization Address [facility] Co de Phone Number [facility] B[facility] [address] [place] [address] * (ABNORMAL) CBC W AUTO DIFFERENTIAL (02/21/2017 9:53 AM INDEPENDENT VIDEO PRODUCER) WBC 8.2 4.4 - 10.7 x10E9/L 02/21/2017 10:15 AM [facility] WBC Corrected x10E9/L 02/21/2017 10:15 AM [facility] RBC 4.04 3.80 - 5.20 x10E12/L 02/21/2017 10:15 AM [facility] Hemoglobin 12.2 12.0 - 15.6 gm/dL 02/21/2017 10:15 AM [facility] Hematocrit 37.0 35.9 - 45.5 % 02/21/2017 10:15 AM [facility] MCV 91.6 80.7 - 98.3 fl 02/21/2017 10:15 AM [facility] MCH 30.2 26.7 - 34.0 pg 02/21/2017 10:15 AM [facility] MCHC 33.0 30.8 - 35.9 gm/dL 02/21/2017 10:15 AM [facility] Platelet Count 250 153 - 416 x10E9/L 02/21/2017 10:15 AM [facility] RDW-CV 12.0(L) 12.1 - 14.9 % 02/21/2017 10:15 AM [facility] MPV 9.1(L) 9.4 - 12.9 fl 02/21/2017 10:15 AM [facility] Neutrophils % 62.7 44.0 - 73.0 % 02/21/2017 10:15 AM [facility] Lymphocytes % 23.8 20.0 - 43.0 % 02/21/2017 10:15 AM [facility] Monocytes % 8.4 5.0 - 13.0 % 02/21/2017 10:15 AM [facility] Eosinophils % 3.9 0.0 - 6.0 % 02/21/2017 10:15 AM [facility] Basophils % 0.6 0.0 - 2.0 % 02/21/2017 10:15 AM [facility] Immature Granulocytes 0.6 0 - 1 % 02/21/2017 10:15 AM [facility] Neutrophil Absolute 5.16 2.01 - 7.14 x10E9/L 02/21/2017 10:15 AM [facility] Lymphocytes Absolute 1.96 1.07 - 3.94 x10E9/L 02/21/2017 10:15 AM [facility] Monocytes Absolute 0.69 0.26 - 1.07 x10E9/L 02/21/2017 10:15 AM [facility] Eosinophils Absolute 0.32 0 - 0.47 x10E9/L 02/21/2017 10:15 AM [facility] Basophils Absolute 0.05 0 - 0.08 x10E9/L 02/21/2017 10:15 AM [facility] Immature Granulocytes Absolute 0.05 0.00 - 0.06 x10E9/L 02/21/2017 10:15 AM [facility] nRBC Auto 0 /100 WBC 02/21/2017 10:15 AM [facility] Blood BLOOD SPECIMEN / Unknown Venipuncture / Unknown 02/21/2017 9:53 AM [facility] 02/21/2017 10:09 AM [facility] Narrative Authorizing Provider Result Ronen Romero MD LAB - HEMATOLOGY OR DERABLES [facility] [address], [place] [id number] * (ABNORMAL) COMPREHENSIVE METABOLIC PANEL (02/21/2017 9:53 AM [facility]) Glucose 136(H) 74 - 106 mg/dL 02/21/2017 10:37 AM [facility] Sodium 138 136 - 145 mmol/L 02/21/2017 10:37 AM [facility] Potassium 4.5 3.5 - 5.1 mmol/L 02/21/2017 10:37 AM [facility] Chloride 105 98 - 107 mmol/L 02/21/2017 10:37 AM [facility] CO2 28 22 - 31 mmol/L 02/21/2017 10:37 AM [facility] Calcium 8.3(L) 8.5 - 10.1 mg/dL 02/21/2017 10:37 AM [facility] Anion Gap 5(L) 8 - 16 mmol/L 02/21/2017 10:37 AM [facility] BUN 10 7 - 21 mg/dL 02/21/2017 10:37 AM [facility] Creatinine 0.74 0.50 - 1.30 mg/dL 02/21/2017 10:37 AM [facility] Alkaline Phosphatase 126 38 - 126 U/L 02/21/2017 10:37 AM [facility] ALT 112(H) 13 - 61 U/L 02/21/2017 10:37 AM [facility] AST 139(H) 5 - 40 U/L 02/21/2017 10:37 AM [facility] Protein Total 7.8 6.4 - 8.2 gm/dL 02/21/2017 10:37 AM [facility] Albumin 3.5 3.4 - 5.0 gm/dL 02/21/2017 10:37 AM [facility] Bilirubin Total 0.4 0.2 - 1.0 mg/dL 02/21/2017 10:37 AM INDEPENDENT VIDEO PR[employer]UCER [facility] eGFR by MDRD >60 >60 mL/min/1.7 3m2 02/21/2017 10:37 AM IN[employer]ENT V[employer] [facility] eGFR by MDRD >60 >60 mL/min/1.7 3m2 02/21/2017 10:37 AM [facility] Blood BLOOD SPECIMEN / Unknown Venipuncture / Unknown 02/21/2017 9:53 AM [employer] 02/21/2017 10:09 AM INDEP[employer]ENT VIDEO PRODUCER Hawk Romero MD LAB - CHEMISTRY ORD ERABLES Performing Organization Address City/[facility] Co de Phone Number [facility] [address] [place] [address] * BLOOD TYPE VERIFICATION (02/21/2017 9:50 AM INDEPENDENT VIDEO PRODUCER) ABO A 02/21/2017 10:49 AM INDEPENDENT VIDEO PRODUCER [facility] Rh Type Positive 02/21/2017 10:49 AM [facility] Comment:History check perfor med. No retype required. Blood Bank BLOOD SPECIMEN / Unknown 02/21/2017 9:50 AM [employer]ENT V[employer]UC[employer] 02/21/2017 10:20 AM IN[employer]ENT VIDEO PRODUCER Hawk Romero MD LAB - BLOOD BANK OR DERABLES Performing Organization Address [facility] Co de Phone Number [facility] [address] [place] [address] * PATHOLOGY/GENETICS HISTORICAL-ONBASE (02/21/2017) Only the most recent of3 resultswithin the time period is included. 02/21/2017 Historical Provider LAB - CHEMISTRY O RDERABLES Performing Organization Address City/[facility]/ZIP Co de Phone Number [phone] [place] [address], [facility] Care Teams Cytogeneticist Relationship Specialty Start Date End Date Scott Adan MD [address] [place] [address] PCP - General Family Medicine 02/21/17 Shayna Florez, RN Registered Nurse 02/21/17 Hawk Romero MD Referring Physician Surgical Oncology 04/13/17 Jason Rae MD Radiation Oncologist Radiation Oncology 04/13/17
== END 2024-03-28 09:22 | disposition home or self-care (01) ==
PROVIDERS: PCP Family Medicine; Visit Provider Family Medicine
DX: M47.816 Spondylosis without myelopathy or radiculopathy, lumbar region (principal); M43.17 Spondylolisthesis, lumbosacral region; M25.552 Pain in left hip; Z96.7 Presence of other bone and tendon implants; Z96.649 Presence of unspecified artificial hip joint; Z96.60 Presence of unspecified orthopedic joint implant
CPT/HCPCS: 72110; 73502

== ENCOUNTER 2024-04-05 16:39 | Emergency (ER) | payer MEDICARE, SELFPAY ==
[2024-04-05 16:41] VITALS: BP 147/97; PULSE 76; RESP 20; TEMP 36.4; O2SAT 98
--- NOTE | 2024-04-05 17:46 | ED.EXTPRO ---
HPI - Extremity Problem General Chief complaint: Extremity Problem,Nontraumatic <Shazia Godfrey PA-C - Last Filed: 04/06/24 09:30> Stated complaint: pain to Left upper thigh <Shazia Godfrey PA-C - Last Filed: 04/06/24 09:30> Time Seen by Provider: 04/05/24 17:46 <Shazia Godfrey PA-C - Last Filed: 04/06/24 09:30> Focused HPI: This is a 69 year old female that presents to the ER for left lower extremity pain. The pain starts in her left groin radiates down into the knee. Denies fever, swelling, redness. No known recent injuries. She is unable to bear weight due to pain. GENERAL: Well-appearing, well-nourished, and in no acute distress. HEAD: Normocephalic, atraumatic. CHEST: Clear to auscultation. ?No respiratory distress. HEART: Regular rate and rhythm.? NEURO: ?Alert and oriented x3. Patient screened in triage and initial orders placed.? ?Additional care and disposition to be based upon?diagnostic testing and treatment. <Shazia Godfrey PA-C - Last Filed: 04/06/24 09:30> Focused HPI: This is a 69 year old female that presents to the ER for left lower extremity pain. The pain starts in her left groin radiates down into the knee. Denies fever, swelling, redness. No known recent injuries. She is unable to bear weight due to pain. GENERAL: Well-appearing, well-nourished, and in no acute distress. HEAD: Normocephalic, atraumatic. CHEST: Clear to auscultation. ?No respiratory distress. HEART: Regular rate and rhythm.? NEURO: ?Alert and oriented x3. Patient screened in triage and initial orders placed.? ?Additional care and disposition to be based upon?diagnostic testing and treatment. <Roma Luque APRN - Last Filed: 04/05/24 23:29> History of Present Illness HPI Narrative: I agree with the assessment and documentation of Shazia Godfrey PA-C. <Roma Luque APRN - Last Filed: 04/05/24 23:29> Related Data Home medications: Home Medications ?Medication ?Instructions ?Recorded ?Confirmed ?Last Taken ?Type [id number]-[id number] 18 mg-FA 400 tablet PO 01/20/22 02/27/24 Unknown History mcg-calcium 500 mg-vit K 50 mcg tablet (Women's Multivitamin) <Shazia Godfrey PA-C - Last Filed: 04/06/24 09:30> Allergies/Adverse reactions: Allergies Allergy/AdvReac Type Severity Reaction Status Date / Time No Known Allergies Allergy Verified 04/05/24 16:40 <Shazia Godfrey PA-C - Last Filed: 04/06/24 09:30> Review of Systems Review of Systems: All systems reviewed & are unremarkable except as noted in HPI and below <Roma Luque APRN - Last Filed: 04/05/24 23:29> [facility] Past Medical History Medical History: Medical History Actinic keratosis Benign hypertension ALEENA (generalized anxiety disorder) Depression Hypertension Osteopenia Hypercholesterolemia <Shazia Godfrey PA-C - Last Filed: 04/06/24 09:30> Surgical History Surgical History: Surgical History Hx of dilation and curettage History of rectal polypectomy History of hysteroscopy (~01/17/17) <Shazia Godfrey PA-C - Last Filed: 04/06/24 09:30> Family History Family History: Family History Father Family history of chronic obstructive pulmonary disease <Shazia Godfrey PA-C - Last Filed: 04/06/24 09:30> Social History Social History: Social History Smoking status: Never smoker Second hand tobacco smoke exposure: No Smoking end date: 02/08/96 Alcohol intake: current Alcohol use details: consumes 3 beers weekly Substance use: never Substance use type: does not use Lack of Transportation: No Lack of Food: Never True Current Housing: I Have Housing Concerned About Future Housing: No Difficulty Paying Gas/Electric Bills: No Difficulty Paying for Meds: No Currently Unemployed: No Education: High School Diploma/GED Difficulty w/ Childcare or Family Care: No Gender identity (if verbalized by the patient): Female <Shazia Godfrey PA-C - Last Filed: 04/06/24 09:30> Exam Narrative: GENERAL: Well appearing, well-nourished, non-toxic, in no acute distress. HEAD: Normocephalic, atraumatic. NECK: Supple. No adenopathy, no masses. RESPIRATORY: Airway patent, respirations nonlabored. Clear to auscultation bilaterally, no rales, rhonchi, wheezing. CARDIOVASCULAR: Regular rate and rhythm without murmurs, rubs, or gallops. Peripheral pulses 2+ and equal bilaterally. ABDOMINAL: Soft, nontender, nondistended, no hepatosplenomegaly. Normoactive BS. MUSCULOSKELETAL: Moves all extremities. Strength/ROM intact without gross deformities. SKIN: Warm, dry, normal color. No rashes. No pitting edema NEURO: A&O X3. Speech clear. Cranial nerves intact. No ataxic movements. + strength extension/flexion both extremities PSYCHIATRIC: Appropriate mood and affect. Normal interaction. <Roma Luque APRN - Last Filed: 04/05/24 23:29> Course Vital Signs Vital signs: Vital Signs Temperature 97.6 F 04/05/24 16:41 Pulse Rate 76 04/05/24 16:41 Respiratory Rate 20 04/05/24 16:41 Blood Pressure 147/97 H 04/05/24 16:41 Pulse Oximetry 98 04/05/24 16:41 Oxygen Delivery Room Air 04/05/24 16:41 Temperature 97.8 F 04/05/24 18:21 Pulse Rate 79 04/05/24 20:38 Respiratory Rate 16 04/05/24 20:38 Blood Pressure 123/57 L 04/05/24 20:38 Pulse Oximetry 95 04/05/24 20:38 Oxygen Delivery Room Air 04/05/24 16:41 <Shazia Godfrey PA-C - Last Filed: 04/06/24 09:30> Vital Signs Temperature 97.6 F 04/05/24 16:41 Pulse Rate 76 04/05/24 16:41 Respiratory Rate 20 04/05/24 16:41 Blood Pressure 147/97 H 04/05/24 16:41 Pulse Oximetry 98 04/05/24 16:41 Oxygen Delivery Room Air 04/05/24 16:41 Temperature 97.8 F 04/05/24 18:21 Pulse Rate 79 04/05/24 20:38 Respiratory Rate 16 04/05/24 20:38 Blood Pressure 123/57 L 04/05/24 20:38 Pulse Oximetry 95 04/05/24 20:38 Oxygen Delivery Room Air 04/05/24 16:41 <Roma Luque APRN - Last Filed: 04/05/24 23:29> MDM - Extremity (Nontraumatic) MDM Narrative Medical decision making narrative: This is a 69 year old female that presents to the ER for left lower extremity pain. The pain starts in her left groin radiates down into the knee. Denies fever, swelling, redness. No known recent injuries. She is unable to bear weight due to pain. Labs Ordered: None necessary Imaging Ordered: Left hip x-ray Medications Ordered: Prednisone 60 mg p.o., Toradol 30 mg IM, Flexeril 10 mg p.o. Results: Pt's L hip x-ray indicates No acute osseous abnormality pelvis and left hip. 3 screws are seen in the left hip area. Diagnosis: Left thigh muscular pain Patient Education/Shared MDM: Results of x-ray shared with patient. She endorses improvement following medication administration. Patient strongly advised to follow-up with her PCP. She will be discharged home with prescription for Prednisone and advised to take OTC Ibuprofen 800mg TID. Strict return precautions provided. Patient verbalized understanding is in agreement with plan. Vital signs stable at time of discharge. All questions answered. <Roma Luque APRN - Last Filed: 04/05/24 23:29> Differential Diagnosis Differential diagnosis: Likely cellulitis, lower extremity edema and other (L lower extremity muscle pain, L hip fracture, L hip dislocation, sciatica pain) <Roma Luque APRN - Last Filed: 04/05/24 23:29> Imaging Data Attestation: I personally reviewed and interpreted this imaging study as follows: <Roma Luque APRN - Last Filed: 04/05/24 23:29> Radiologist's impression: Impressions Hip/Pelvis X-Ray 04/05/24 18:31 IMPRESSION: No acute osseous abnormality pelvis and left hip. 3 screws are seen in the left hip area. <Roma Luque APRN - Last Filed: 04/05/24 23:29> Critical Care Time Critical Care Time Critical Care Time: No <Shazia Godfrey PA-C - Last Filed: 04/06/24 09:30> Discharge Plan Discharge Clinical Impression: Localized muscle weakness Lower extremity pain, anterior Qualifiers: Laterality: left Qualified Code(s): M79.605 - Pain in left leg <Shazia Godfrey PA-C - Last Filed: 04/06/24 09:30> Patient Disposition: Home, Self-Care <Shazia Godfrey PA-C - Last Filed: 04/06/24 09:30> Condition: Stable <Shazia Godfrey PA-C - Last Filed: 04/06/24 09:30> Instructions: Antibiotic Form, Musculoskeletal Pain (ED) <Shazia Godfrey PA-C - Last Filed: 04/06/24 09:30> Additional Instructions: Please return to the ER with an worsening symptoms. Follow-up with primary care provider in the next 2-3 days. Take all medications as prescribed. <Shazia Godfrey PA-C - Last Filed: 04/06/24 09:30> Patient Language: Micronesian <Shazia Godfrey PA-C - Last Filed: 04/06/24 09:30> Prescriptions: New prednisone 50 mg tablet 50 mg PO DAILY Qty: 7 0RF No Action Women's Multivitamin 18 mg-400 mcg- 500 mg-50 mcg tablet PO sertraline 50 mg tablet 50 mg PO DAILY Qty: 30 5RF Rx Instructions: tAKE 1 TABLET BY MOUTH ONCE DAILY lisinopril 20 mg tablet 20 mg PO DAILY Qty: 90 3RF <Shazia Godfrey PA-C - Last Filed: 04/06/24 09:30> Follow-up/Referrals: Danna Rios MD [Primary Care Provider] - <Shazia Godfrey PA-C - Last Filed: 04/06/24 09:30> Time of Disposition: 23:29 <Shazia Godfrey PA-C - Last Filed: 04/06/24 09:30> 23:29 <Roma Luque APRN - Last Filed: 04/05/24 23:29>
[2024-04-05 18:21] VITALS: BP 138/55; PULSE 79; RESP 18; TEMP 36.6; O2SAT 96
[2024-04-05 20:38] VITALS: BP 123/57; PULSE 79; RESP 16; O2SAT 95
--- NOTE | 2024-04-05 21:06 | PC.NURSE ---
Pt presents with complaint of constant ache and intermittent sharp, shooting pain from left groin that shoots down to just below her left knee, worse when picking leg up/trying to walk. Pt states this started this afternoon when she was sitting down and was trying to stand up, no specific injury noticed. Reports hx of left hip fracture requiring surgical intervention due to ice skating incident years ago. Pt able to flex foot without pain, able to bear weight but states it hurts too bad to walk. No numbness/tingling. No obvious swelling/bruising/deformity.
[2024-04-05] MEDS: KETOROLAC 30 MG/ML VIAL (*BKC) IM (22:31)
[2024-04-05] MEDS: predniSONE 20 MG TABLET 60 MG PO (22:32)
[2024-04-05] MEDS: CYCLOBENZAPRINE HCL 10 MG TABLET PO (23:49)
== END 2024-04-06 00:14 | disposition home or self-care (01) ==
PROVIDERS: Emergency Provider Registered Nurse; PCP Family Medicine
DX: M79.652 Pain in left thigh (principal); M62.81 Muscle weakness (generalized); I10 Essential (primary) hypertension; E78.00 Pure hypercholesterolemia, unspecified; M85.80 Other specified disorders of bone density and structure, unspecified site; Z86.0100 Personal history of colon polyps, unspecified; Z87.891 Personal history of nicotine dependence
CPT/HCPCS: 73502; 96372; 99283; A9270; J1885; J7512

== ENCOUNTER 2024-08-24 16:07 | Inpatient (IN) | payer MEDICARE, SELFPAY ==
[2024-08-24] VITALS (10 sets, daily range): BP systolic 113–133; BP diastolic 42–96; PULSE 75–94; RESP 15–20; TEMP 36.4–36.9; O2SAT 96–100; BMI 39.3
--- NOTE | ~2024-08-24 | CT_ITS ---
EXAMINATION: CTA abdomen pelvis DATE: 08/24/2024 19:49 INDICATION: GI bleed TECHNIQUE: Computed tomography angiography of the abdomen and pelvis was performed without and with 1 00 mL Omnipaque-350 intravenous contrast in the arterial and portal venous phases. Automated exposure control and iterative reconstruction technique were employed. The dose-length product was 3606.40 mG y-cm. COMPARISON: CT abdomen pelvis 01/26/2017. FINDINGS: Lower thorax: Mild cardiomegaly. Bibasilar scar/atelectasis. Liver: Hepatomegaly. Nodular liver border Biliary/Gallbladder: Gallstones. No inflammatory change. No bile duct dilation. Pancreas: No mass or duct dilation. Spleen: Enlarged. Adrenals:No mass. Kidneys: No suspicious mass, obstructing stone, or hydronephrosis. Punctate bilateral nonobstructing calcifications. Subcentimeter subcentimeter right midpole lesion, too small to characterize but likel y represents a cyst. GI tract: No small or large bowel dilation. Normal appendix. Diverticulosis without diverticulitis. Mesentery/Peritoneum: No ascites, mass, or free air. Retroperitoneum: No mass. Pelvis: Normal urinary bladder. Absent uterus. Bilateral ovaries not confidently identified. Soft Tissues: Small uncomplicated fat-containing umbilical and bilateral inguinal hernias Bones: No acute osseous finding. Uncomplicated appearing left hip fixation screws. IMPRESSION: No active GI bleeding detected. Hepatosplenomegaly. Cirrhosis with portal hypertension. Reviewed, dictated and finalized at location K.
--- OUTSIDE RECORDS SUMMARY | 2024-08-24 16:09 | XMS_ITS | Clinical Summary ---
Author Organization [facility] Address [address] [place] [address] Care Team Providers Care Feather Mixer Name Role Phone Scott Adan MD Primary Care Provider [phone] Shayna Florez RN Unavailable Unavailable Hawk Romero MD Unavailable UnavailJason Lara MD Unavailable [phone] Source Comments [facility],non-owned Affiliates and Associated Physician Practices is amultiple site organization consisting of ambulatory clinics and hospital sitesin [place] and [place]. This disclosure is being madepursuant to the Care Everywhere program and may not contain all information available regarding this patient. Last updated 17.[facility] Allergies No known active allergies Medications * Be aware that medications may not be up to date on this document. Alwaysverify current medications with the patient. sertraline (ZOLOFT) 50 MG tablet Take 50 mg by mouth once daily Active simvastatin (ZOCOR) 20 MG tablet Take 20 mg by mouth at bedtime Active lisinopril (PRINIVIL; ZESTRIL) 10 MG tablet Take 10 mg by mouth once daily Active oxyCODONE-aceta minophen (PERCOCET) 5-325 MG tablet Take 2 tablets by mouth every 6 hours 40 tablet 8 Active Additional Information Patient not taking.Reported on 04/28/2017 docusate sodium (COLACE) 100 MG capsule Take 1 capsule by mouth 2 times daily as needed for Constipation 60 capsule 1 8 Active Additional Information Patient not taking.Reported on 04/28/2017 ibuprofen (MOTRIN) 600 MG tablet Take 1 tablet by mouth every 6 hours as needed for Pain 60 tablet 1 8 Active Additional Information Patient not taking.Reported on 04/28/2017 docusate sodium (COLACE) 100 MG capsule Take 1 capsule by mouth 2 times daily 60 capsule 1 8 Active Additional Information Patient not taking.Reported on 04/28/2017 Active Problems Problem Noted Date Diagnosed Date Endometrial cancer 02/21/2017 Social History Tobacco Use Types Packs/Day Years Used Date Smoking Tobacco: Former Cigarettes Q uit: 02/21/2002 Smokeless Tobacco: Current Comments:nicorette gum Alcohol Use Standard Drinks/Week Comments Yes 0 (1 standard drink = 0.6 oz pur e alcohol) weekends Comments Unknown Sex and Gender Information Value Date Recorded Sex Assigned at Not on file 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 Gender Identity Female 04/18/2017 11:27 AM CDT [...] 11:15 AM CDT Height 167.6 cm (5' 5.98) 04/28/2017 11:15 AM C DT Body Mass [...] VACCINE (1 - 2023-2 5 season) 2023 DEPRESSION SCREENING 02/08/2024 INFLUENZA VACCINE (#1) 2024 HEPATITIS B VACCINE Aged Out No longe r eligible based on patient's age to complete this topic HIB VACCINE Aged Out No longer eligi ble based on patient's age to complete this topic HPV VACCINE Aged Out No longer eligi ble based on patient's age to complete this topic MENINGOCOCCAL (Group B) VACCINE SHARED DECISION-MAKING Aged Out No longer eligible based on patient's age to complete this topic MENINGOCOCCAL GROUPS A/C/Y/W VACCINE Aged Out No longer eligible b ased on patient's age to complete this topic Procedures Procedure Name Priority Date/Time Associated Diagnosis Comments BASIC METABOLIC PANEL (CALCIUM TOTAL) STAT 02/22/2017 5:34 AM [facility] Endometrial cancer from Last 3 Months or Most Recently Relevant to Health Maintenance Results * (ABNORMAL) BASIC METABOLIC PANEL (CALCIUM TOTAL) (02/22/2017 5:34 AM [facility]) Glucose 127(H) 74 - 106 mg/dL 02/22/2017 6:07 AM [facility] Sodium 138 136 - 145 mmol/L 02/22/2017 6:07 AM [facility] Potassium 4.8 3.5 - 5.1 mmol/L 02/22/2017 6:07 AM [facility] Chloride 105 98 - 107 mmol/L 02/22/2017 6:07 AM [facility] CO2 29 22 - 31 mmol/L 02/22/2017 6:07 AM [facility] Calcium 7.8(L) 8.5 - 10.1 mg/dL 02/22/2017 6:07 AM [facility] Anion Gap 4(L) 8 - 16 mmol/L 02/22/2017 6:07 AM [facility] BUN 11 7 - 21 mg/dL 02/22/2017 6:07 AM [facility] Creatinine 0.73 0.50 - 1.30 mg/dL 02/22/2017 6:07 AM DIESEL ENGINE TE[employer] [facility] eGFR by MDRD >60 >60 mL/min/1.7 3m2 02/22/2017 6:07 AM DIESEL ENGINE TESTER [facility] eGFR by MDRD >60 >60 mL/min/1.7 3m2 02/22/2017 6:07 AM DIESEL ENGINE TESTER [facility] Blood BLOOD SPECIMEN / Unknown Lab Venipuncture / Unknown 02/22/2017 5:34 AM DIESEL ENGINE TESTER 02/22/2017 5:43 AM DIESEL ENGINE TESTER us Nancie Solorio MD LAB - CHEMISTRY ORDERABLES F inal Result Performing Organization Address City/State/[facility] Co de Phone Number [facility] [address] [place] [address] from Last 3 Months or Most Recently Relevant to Health Maintenance Insurance [facility] Advance Directives * Full Code (Latest Code Status on File) Date Activated Date Inactivated Comments 02/21/2017 8:10 PM 02/22/2017 6:04 PM Care Teams Feather Mixer Relationship Specialty Start Date End Date Scott Adan MD [address] [place] [address] PCP - General Family Medicine 02/21/17 Shayna Florez, TREE Registered Nurse 02/21/17 Hawk Romero MD Referring Physician Surgical Oncology 04/13/17 Jason Rea MD Radiation Oncologist Radiation Oncology 04/13/17
--- OUTSIDE RECORDS SUMMARY | 2024-08-24 16:09 | XMS_ITS | Referral Summary ---
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 [address] [place] [address] Care Teams Recreation Assistant Relationship Specialty Start Date End Date Blanca Diego MD PCP - General Family Practice 07/25/19
--- OUTSIDE RECORDS SUMMARY | 2024-08-24 16:09 | XMS_ITS | Clinical Summary ---
Author Organization [facility] [address] Address [address] [place] [address] Care Team Providers Care Teacher Cclc Name Role Phone Blanca Diego MD Primary Care Provider [phone] Allergies No known active allergies Medications lisinopril-hydroCH LOROthiazide (ZESTORETIC) 10-12.5 mg per tablet 07/29/2019 Active Zoloft 50 mg tablet 07/30/2019 Active Active Problems Problem Noted Date Diagnosed Date Epistaxis 08/06/2019 Blood in ear canal, right 08/06/2019 Surgical History Surgery Date Site/Laterality Comments HYSTERECTOMY HIP FRACTURE SURGERY Left ECTOPIC Medical History Medical History Date Comments Allergic rhinitis Cancer (HCC) Hypertension Hx of radiation therapy Sinusitis [...] on file 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
--- NOTE | 2024-08-24 16:38 | ED.RECABL ---
HPI - Recheck/Abnormal Lab/Rx General Chief Complaint: Recheck/Abnormal Lab/Rx <MACKENZIE Hunt Last Filed: 08/24/24 18:37> Stated Complaint: low hgb <MACKENZIE Hunt Last Filed: 08/24/24 18:37> Time Seen by Provider: 08/24/24 16:38 <MACKENZIE Hunt Last Filed: 08/24/24 18:37> Focused HPI: Patient is a 69-year-old female who presents the ED with report of low hemoglobin. Patient reports she had routine labs drawn in her primary care doctor's office on Tuesday. She was notified today that her hemoglobin was low down to 7.6. She was then referred to the ED for further evaluation. Per records, patient had a normal hemoglobin in the 12 range in March of this year. She does report that she has had some intermittent lower abdominal pain and bright red rectal bleeding over the past few months. First occurred in April. Last occurred 1 week ago. She denies these symptoms currently, however does report that she had a rectal exam performed in her [facility] office on Tuesday which was guaiac positive. Patient does admit to feeling increasingly fatigued and lightheaded at times recently. Denies shortness of breath, fevers, chest pain. Denies history of anemia or previous blood transfusions. Has never had a colonoscopy. Scheduled for one in October. GENERAL: Well-appearing, morbidly obese with BMI of 40.6, and in no acute distress. HEAD: Normocephalic, atraumatic. CHEST: Clear to auscultation. ?No respiratory distress. HEART: Regular rate and rhythm.? NEURO: ?Alert and oriented x3. Patient screened in triage and initial orders placed.? ?Additional care and disposition to be based upon?diagnostic testing and treatment. <MACKENZIE Hunt Last Filed: 08/24/24 18:37> Source: patient <MACKENZIE Hunt Last Filed: 08/24/24 18:37> Mode of arrival: ambulatory <MACKENZIE Hunt Last Filed: 08/24/24 18:37> Limitations: no limitations <Rochelle Slater PA-C - Last Filed: 08/24/24 18:37> History of Present Illness HPI narrative: Agree with the HPI above <Nhan Kothari MD - Last Filed: 08/25/24 04:31> Related Data Home Medications: Home Medications ?Medication ?Instructions ?Recorded ?Confirmed ?Last Taken ?Type [id number] 18 mg-FA 400 1 tablet PO DAILY 01/20/22 08/24/24 Unknown History mcg-calcium 500 mg-vit K 50 mcg tablet (Women's Multivitamin) <Rochelle Slater PA-C - Last Filed: 08/24/24 18:37> Allergies/Adverse Reactions: Allergies Allergy/AdvReac Type Severity Reaction Status Date / Time No Known Allergies Allergy Verified 08/23/24 10:58 <Rochelle Slater PA-C - Last Filed: 08/24/24 18:37> Review of Systems Review of Systems: As reviewed above in HPI <Nhan Kothari MD - Last Filed: 08/25/24 04:31> [facility] Past Medical History Medical History: Medical History Diabetes Stomach discomfort Bloody stool Actinic keratosis Benign hypertension ALEENA (generalized anxiety disorder) Depression Hypertension Osteopenia Hypercholesterolemia <Rochelle Slater PA-C - Last Filed: 08/24/24 18:37> Surgical History Surgical History: Surgical History Hx of dilation and curettage History of rectal polypectomy History of hysteroscopy (~01/17/17) <Rochelle Slater PA-C - Last Filed: 08/24/24 18:37> Family History Family History: Family History Father Family history of chronic obstructive pulmonary disease <Rochelle Slater PA-C - Last Filed: 08/24/24 18:37> Social History Social History: Social History Smoking status: Former smoker Second hand tobacco smoke exposure: No Smoking end date: 02/08/96 Alcohol intake: never Alcohol use details: consumes 3 beers weekly Substance use: never Substance use type: does not use Do You Feel Safe in your Home?: Yes Lack of Transportation: No Lack of Food: Never True Current Housing: I Have Housing Concerned About Future Housing: No Difficulty Paying Gas/Electric Bills: No Difficulty Paying for Meds: No Currently Unemployed: No Education: Associate Degree Difficulty w/ Childcare or Family Care: No Gender identity (if verbalized by the patient): Female Spiritual care concerns: No <Rochelle Slater PA-C - Last Filed: 08/24/24 18:37> Exam Narrative: GENERAL: [Well-appearing, well-nourished, and in no acute distress.] HEAD: [Normocephalic, atraumatic.] EYES: [PERRLA and EOMI.] ENT: Nares clear, no rhinorrhea or epistaxis. Mucous membranes moist. NECK: Supple. CHEST: [Clear to auscultation. No respiratory distress.] HEART: [Regular rate and rhythm]. No murmur heard. [Normal peripheral pulses.] ABDOMEN: [Soft, nondistended], [nontender], [No rigidity or guarding] EXTREMITIES: Normal range of motion. [No edema.] SKIN: Warm, dry, no rash. NEURO: [No focal deficits]. Alert and oriented [x3.] PSYCH: [Normal mood and affect.] <Nhan Kothari MD - Last Filed: 08/25/24 04:31> Course Vital Signs Vital signs: Vital Signs Temperature 36.4 C 08/24/24 16:20 Pulse Rate 94 08/24/24 16:20 Respiratory Rate 18 08/24/24 16:20 Blood Pressure 121/50 L 08/24/24 16:20 Pulse Oximetry 99 08/24/24 16:20 Temperature 36.5 C 08/25/24 04:05 Pulse Rate 77 08/25/24 04:05 Respiratory Rate 18 08/25/24 04:05 Blood Pressure 106/46 L 08/25/24 04:05 Pulse Oximetry 98 08/25/24 04:05 Oxygen Delivery Room Air 08/24/24 22:13 <Rochelle Slater PA-C - Last Filed: 08/24/24 18:37> Vital Signs Temperature 36.4 C 08/24/24 16:20 Pulse Rate 94 08/24/24 16:20 Respiratory Rate 18 08/24/24 16:20 Blood Pressure 121/50 L 08/24/24 16:20 Pulse Oximetry 99 08/24/24 16:20 Temperature 36.5 C 08/25/24 04:05 Pulse Rate 77 08/25/24 04:05 Respiratory Rate 18 08/25/24 04:05 Blood Pressure 106/46 L 08/25/24 04:05 Pulse Oximetry 98 08/25/24 04:05 Oxygen Delivery Room Air 08/24/24 22:13 <Nhan Kothari MD - Last Filed: 08/25/24 04:31> MDM - Recheck/Abnormal Lab/Rx MDM Narrative Medical decision making narrative: MSE by HARISH in triage. <Rochelle Slater PA-C - Last Filed: 08/24/24 18:37> MSE by HARISH in triage. 69-year-old female presenting to the emergency department for reported low hemoglobin and intermittent bright red blood per rectum. Intermittent for the past few months and recurring. History of a normal hemoglobin in the 12 range of March of last year. Outside PCP labs today showed hemoglobin of 7.6. She was told to come to the hospital for evaluation. Patient did have guaiac-positive stool on digital rectal examination. Admits to feeling fatigued and lightheaded. Not any acute distress and has an unremarkable physical examination otherwise appears well, soft nontender nondistended abdomen. Regular rate and rhythm and hemodynamically stable. Given patient's concerns and history of intermittent bright red blood per rectum she could be having occult or active GI losses. She tells me she has been on high-dose NSAIDs for arthritis pain and up to 1200 mg of ibuprofen a day every day for the last 5 months. Her GI provider saw her in clinic several days ago and advised her to stop this medication and plan for colonoscopy but she had worsening symptoms and low hemoglobin so she was sent the ER. Repeat laboratory studies obtained today including a CT of the abdomen and pelvis for GI bleed protocol. Coag studies obtained as well as iron labs. Workup shows no leukocytosis but hemoglobin is even lower at 6.6. Platelet count is normal. Normal INR. Normal electrolytes, normal BUN and creatinine, low iron labs including low iron, elevated TIBC, low iron saturation low ferritin. CTA was independently reviewed and also interpreted by radiology with no active GI bleed detected. Cirrhosis with portal hypertension is seen and patient does endorse to drinking. Patient remains hemodynamically stable, packed red blood cell transfusion 2 units was ordered I discussed the case with Gastroenterology Dr. Shane who recommended admission and plans for observation and potentially endoscopy if warranted. Spoke to the hospitalist Dr. Duran who was agreeable for observation admission at this time. <Nhan Kothari MD - Last Filed: 08/25/24 04:31> Medical Records Attestation: I reviewed the patient's medical records. <Nhan Kothari MD - Last Filed: 08/25/24 04:31> Lab Data Attestation: I reviewed the patient's lab results. <Nhan Kothari MD - Last Filed: 08/25/24 04:31> Result diagrams: 08/24/24 16:39 08/24/24 16:39 <Rochelle Slater PA-C - Last Filed: 08/24/24 18:37> Labs: Lab Results 08/24/24 08/24/24 Range/Units 16:39 19:03 WBC 4.5 (4.5-10.0) K/mm3 RBC 2.85 L (4.2-5.4) M/mm3 Hgb 6.6 L* (12.0-15.0) g/dL Hct 22.9 L (37.0-47.0) % MCV 80.4 (80-100) fl MCH 23.2 L (26-34) pg MCHC 28.8 L (32-36) g/dl RDW 15.9 H (11.5-14.5) % Plt Count 165 (150-375) k/mm3 MPV 9.1 (7.4-10.4) fl Immature Gran % (Auto) 0.7 H (0-0.5) % Neut % (Auto) 58.7 (45.5-73.1) % Lymph % (Auto) 24.9 (18.3-44.2) % Norton % (Auto) 8.3 (2.6-8.5) % Eos % (Auto) 6.7 H (0-4.4) % Baso % (Auto) 0.7 (0.2-1.2) % Lymph # (Auto) 1.11 (0.9-3.2) K/mm3 Norton # (Auto) 0.4 (0.1-0.6) K/mm3 Eos # (Auto) 0.3 (0-0.3) K/mm3 Baso # (Auto) 0.0 (0.0-0.1) K/mm3 Abs Immat Gran (auto) 0.03 (0.00-0.031) K/mm3 Absolute Neuts (auto) 2.6 (1.3-6.7) K/mm3 Absolute Nucleated RBC 0.000 (0.0-0.012) K/mm3 Nucleated RBC % 0.0 (0.0-0.2) % Absolute Retic 0.07 (0.02-0.10) 10^6/uL Percent Retic 2.53 (0.7-4.3) % Immature Retic Fraction 23.5 H (3.0-15.9) % Retic Hgb Content 21.2 L (28.2-36.6) pg PT 15.4 H (11.1-14.7) Seconds INR 1.2 APTT 31.5 (22.3-36.8) Seconds Sodium 138 (137-145) mmol/L Potassium 4.4 (3.4-5.0) mmol/L Chloride 106 (98-107) mmol/L Carbon Dioxide 23 (22-30) mmol/L Anion Gap 9 (4-12) mmol/L BUN 21 H (7-17) mg/dL Creatinine 0.62 L (0.7-1.0) mg/dL Estim Creat Clear Calc 96 ml/min Estimated GFR > 60 (59 - ) Glucose 170 H (65-110) mg/dL Calcium 9.4 (8.4-10.2) mg/dL Iron 18 L (37-170) ug/dL TIBC 463 H (261-462) ug/dL % Saturation 4 L (20-50) % Transferrin 328 (206-381) mg/dL Ferritin 7.11 L (11.1-264) ng/mL Total Bilirubin 0.6 (0.2-1.3) mg/dL AST 43 H (14-36) U/L ALT 21 (6-35) U/L Alkaline Phosphatase 122 (38-126) U/L Lactate Dehydrogenase 197 (120-246) U/L Total Protein 8.0 (6.3-8.2) g/dL Albumin 4.1 (3.5-5.1) g/dL Vitamin B12 826.0 (239-931) pg/mL Folate 15.3 (2.76->20) ng/mL TSH (Reflex) 1.600 (0.465-4.68) uIU/mL Blood Type A Positive Antibody Screen Negative Crossmatch See Detail <Rochelle Slater PA-C - Last Filed: 08/24/24 18:37> Lab Results 08/24/24 08/24/24 Range/Units 16:39 19:03 WBC 4.5 (4.5-10.0) K/mm3 RBC 2.85 L (4.2-5.4) M/mm3 Hgb 6.6 L* (12.0-15.0) g/dL Hct 22.9 L (37.0-47.0) % MCV 80.4 (80-100) fl MCH 23.2 L (26-34) pg MCHC 28.8 L (32-36) g/dl RDW 15.9 H (11.5-14.5) % Plt Count 165 (150-375) k/mm3 MPV 9.1 (7.4-10.4) fl Immature Gran % (Auto) 0.7 H (0-0.5) % Neut % (Auto) 58.7 (45.5-73.1) % Lymph % (Auto) 24.9 (18.3-44.2) % Norton % (Auto) 8.3 (2.6-8.5) % Eos % (Auto) 6.7 H (0-4.4) % Baso % (Auto) 0.7 (0.2-1.2) % Lymph # (Auto) 1.11 (0.9-3.2) K/mm3 Norton # (Auto) 0.4 (0.1-0.6) K/mm3 Eos # (Auto) 0.3 (0-0.3) K/mm3 Baso # (Auto) 0.0 (0.0-0.1) K/mm3 Abs Immat Gran (auto) 0.03 (0.00-0.031) K/mm3 Absolute Neuts (auto) 2.6 (1.3-6.7) K/mm3 Absolute Nucleated RBC 0.000 (0.0-0.012) K/mm3 Nucleated RBC % 0.0 (0.0-0.2) % Absolute Retic 0.07 (0.02-0.10) 10^6/uL Percent Retic 2.53 (0.7-4.3) % Immature Retic Fraction 23.5 H (3.0-15.9) % Retic Hgb Content 21.2 L (28.2-36.6) pg PT 15.4 H (11.1-14.7) Seconds INR 1.2 APTT 31.5 (22.3-36.8) Seconds Sodium 138 (137-145) mmol/L Potassium 4.4 (3.4-5.0) mmol/L Chloride 106 (98-107) mmol/L Carbon Dioxide 23 (22-30) mmol/L Anion Gap 9 (4-12) mmol/L BUN 21 H (7-17) mg/dL Creatinine 0.62 L (0.7-1.0) mg/dL Estim Creat Clear Calc 96 ml/min Estimated GFR > 60 (59 - ) Glucose 170 H (65-110) mg/dL Calcium 9.4 (8.4-10.2) mg/dL Iron 18 L (37-170) ug/dL TIBC 463 H (261-462) ug/dL % Saturation 4 L (20-50) % Transferrin 328 (206-381) mg/dL Ferritin 7.11 L (11.1-264) ng/mL Total Bilirubin 0.6 (0.2-1.3) mg/dL AST 43 H (14-36) U/L ALT 21 (6-35) U/L Alkaline Phosphatase 122 (38-126) U/L Lactate Dehydrogenase 197 (120-246) U/L Total Protein 8.0 (6.3-8.2) g/dL Albumin 4.1 (3.5-5.1) g/dL Vitamin B12 826.0 (239-931) pg/mL Folate 15.3 (2.76->20) ng/mL TSH (Reflex) 1.600 (0.465-4.68) uIU/mL Blood Type A Positive Antibody Screen Negative Crossmatch See Detail <Nhan Kothari MD - Last Filed: 08/25/24 04:31> Imaging Data Attestation: I personally reviewed and interpreted this imaging study as follows: <Nhan Kothari MD - Last Filed: 08/25/24 04:31> My impression: Impressions Abdomen/Pelvis CTA 08/24/24 19:53 IMPRESSION: No active GI bleeding detected. Hepatosplenomegaly. Cirrhosis with portal hypertension. <Nhan Kothari MD - Last Filed: 08/25/24 04:31> Critical Care Time Critical Care Time Critical Care Time: Yes <Nhan Kothari MD - Last Filed: 08/25/24 04:31> Total Critical Care Time: 35 <Nhan Kothari MD - Last Filed: 08/25/24 04:31> Discharge Plan Discharge Clinical Impression: Anemia requiring transfusions, ABLA (acute blood loss anemia), History of bloody stools, Excessive use of nonsteroidal anti-inflammatory drugs (NSAIDs) <Rochelle Slater PA-C - Last Filed: 08/24/24 18:37> Patient Disposition: Still a Patient <Rochelle Slater PA-C - Last Filed: 08/24/24 18:37> Condition: Stable <Rochelle Slater PA-C - Last Filed: 08/24/24 18:37>
[2024-08-24 16:45] LABS: Hematocrit 22.9 % (37.0-47.0); Immature Granulocyte Percent A 0.7 % (0-0.5); Lymphocytes Absolute Auto 1.11 K/mm3 (0.9-3.2); Mean Corpuscular HGB Conc 28.8 g/dl (32-36); Mean Corpuscular Hemoglobin 23.2 pg (26-34); Mean Corpuscular Volume 80.4 fl (80-100); Nucleated Red Blood Cells Absolute Auto 0.000 K/mm3 (0.0-0.012); Nucleated Red Blood Cells Perc 0.0 % (0.0-0.2); Platelet Count Result 165 k/mm3 (150-375); Red Blood Count 2.85 M/mm3 (4.2-5.4); White Blood Count 4.5 K/mm3 (4.5-10.0)
[2024-08-24 17:05] LABS: INR 1.2; Partial Thromboplastin Time 31.5 Seconds (22.3-36.8); Prothrombin Time 15.4 Seconds (11.1-14.7)
[2024-08-24 17:07] LABS: Alanine Aminotransferase 21 U/L (6-35); Albumin Level 4.1 g/dL (3.5-5.1); Alkaline Phosphatase 122 U/L (38-126); Aspartate Amino Transferase 43 U/L (14-36); Bilirubin,Total 0.6 mg/dL (0.2-1.3); Blood Urea Nitrogen 21 mg/dL (7-17); Calcium 9.4 mg/dL (8.4-10.2); Carbon Dioxide 23 mmol/L (22-30); Estimated CRCL calculation 96 ml/min; Estimated Glomerular Filt Rate > 60; Glucose 170 mg/dL (65-110); Total Protein 8.0 g/dL (6.3-8.2)
[2024-08-24 17:11] LABS: Hemoglobin 6.6 g/dL (12.0-15.0)
[2024-08-24 17:15] LABS: Anion Gap 9 mmol/L (4-12); Chloride 106 mmol/L (98-107); Potassium 4.4 mmol/L (3.4-5.0); Sodium 138 mmol/L (137-145)
[2024-08-24 19:11] LABS: Immature Reticulocyte Fraction 23.5 % (3.0-15.9); Reticulocyte Hemoglobin Conten 21.2 pg (28.2-36.6); Reticulocytes Absolute 0.07 10^6/uL (0.02-0.10)
[2024-08-24 19:22] LABS: Iron 18 ug/dL (37-170)
--- OUTSIDE RECORDS SUMMARY | 2024-08-24 19:25 | XMS_ITS | Clinical Summary ---
Author Organization [facility] Address [address] [place] [address] Care Team Providers Care Film Vault Supervisor Name Role Phone Scott Adan MD Primary Care Provider [phone] Shayna Florez RN Unavailable Unavailable Hawk Romero MD Unavailable UnavailJason Lara MD Unavailable [phone] Source Comments [facility],non-owned Affiliates and Associated Physician Practices is amultiple site organization consisting of ambulatory clinics and hospital sitesin [place], [place], [place] and [place]. This disclosure is being madepursuant to the Care Everywhere program and may not contain all information available regarding this patient. 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 Gender Identity Female 04/18/2017 11:27 AM CDT [...] PANEL (CALCIUM TOTAL) STAT 02/22/2017 5:34 AM [facility] Endometrial cancer from Last 3 Months or Most Recently Relevant to Health Maintenance Results * (ABNORMAL) BASIC METABOLIC PANEL (CALCIUM TOTAL) (02/22/2017 5:34 AM [facility]) Glucose 127(H) 74 - 106 mg/dL 02/22/2017 6:07 AM [facility] Sodium 138 136 - 145 mmol/L 02/22/2017 6:07 AM [facility] Potassium 4.8 3.5 - 5.1 mmol/L 02/22/2017 6:07 AM [facility] Chloride 105 98 - 107 mmol/L 02/22/2017 6:07 AM [facility] CO2 29 22 - 31 mmol/L 02/22/2017 6:07 AM [facility] Calcium 7.8(L) 8.5 - 10.1 mg/dL 02/22/2017 6:07 AM [facility] Anion Gap 4(L) 8 - 16 mmol/L 02/22/2017 6:07 AM [facility] BUN 11 7 - 21 mg/dL 02/22/2017 6:07 AM [facility] Creatinine 0.73 0.50 - 1.30 mg/dL 02/22/2017 6:07 AM ATOMIC PHYSICS TEACHER [facility] eGFR by MDRD >60 >60 mL/min/1.7 3m2 02/22/2017 6:07 AM ATOMIC PHYSICS TEACHER [facility] eGFR by MDRD >60 >60 mL/min/1.7 3m2 02/22/2017 6:07 AM ATOMIC PHYSICS TEACHER [facility] Blood BLOOD SPECIMEN / Unknown Lab Venipuncture / Unknown 02/22/2017 5:34 AM ATOMIC PHYSICS TEACHER 02/22/2017 5:43 AM ATOMIC PHYSICS TEACHER us Nancie Solorio MD LAB - CHEMISTRY ORDERABLES F inal Result Performing Organization Address City/State/[facility] Co de Phone Number [facility] [address] [place] [address] from Last 3 Months or Most Recently Relevant to Health Maintenance Insurance [facility] Advance Directives * Full Code (Latest Code Status on File) Date Activated Date Inactivated Comments 02/21/2017 8:10 PM 02/22/2017 6:04 PM Care Teams Film Vault Supervisor Relationship Specialty Start Date End Date Scott Adan MD [address] [place] [address] PCP - General Family Medicine 02/21/17 Shayna Florez, TREE Registered Nurse 02/21/17 Hawk Romero MD Referring Physician Surgical Oncology 04/13/17 Jason Rea MD Radiation Oncologist Radiation Oncology 04/13/17
--- OUTSIDE RECORDS SUMMARY | 2024-08-24 19:25 | XMS_ITS | Referral Summary ---
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
--- OUTSIDE RECORDS SUMMARY | 2024-08-24 19:25 | XMS_ITS | Clinical Summary ---
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
[2024-08-24 19:30] LABS: Transferrin 328 mg/dL (206-381)
[2024-08-24 19:33] LABS: Percent Iron Saturation 4 % (20-50)
[2024-08-24 19:57] LABS: Thyroid Stimulating Hormone Reflex 1.600 uIU/mL (0.465-4.68)
[2024-08-24 20:01] LABS: Ferritin 7.11 ng/mL (11.1-264)
[2024-08-24] MEDS: SODIUM CHLORIDE 0.9% IV 250 ML 30 ML IV CONT (20:09)
[2024-08-24 20:33] LABS: Vitamin B12 826.0 pg/mL (239-931)
[2024-08-24] MEDS: ONDANSETRON INJ 4 MG/2 ML VIAL IV PUSH (20:51)
[2024-08-24] MEDS: ACETAMINOPHEN 325 MG TABLET 650 MG PO (20:51)
[2024-08-24] MEDS: LACTATED RINGERS 1,000 ML 125 ML IV CONT (20:51)
[2024-08-24] MEDS: PANTOPRAZOLE SODIUM IV 40 MG VIAL IV PUSH (20:51)
--- NOTE | 2024-08-24 20:52 | P.HP_ITS ---
H&P: HPI History of Present Illness Date/Time: 08/24/24 20:52 Chief Complaint: Low hemoglobin Narrative: This is a 69-year-old female who presents to [facility] ER on 08/24/2024 with a report of low hemoglobin. History of hypercholesterolemia, generalized anxiety disorder, depression, hypertension, remote alcohol use disorder. She had routine labs drawn with her PCP 3 days [employer], she was notified on day of admission her hemoglobin was 7.6. Hemoglobin in March was 12. She reports since April 2024 she has had intermittent lower abdominal pain and bloating and bright red rectal bleeding. As of late, her stools are dark brown. No nausea or vomiting. Of note, she had a rectal exam performed at PCPs office initially which was guaiac positive. Since March she has been taking 750 mg of ibuprofen daily for arthritis. In ER, she is hemodynamically stable breathing well on room air. Hemoglobin 6.6. 2 units of PRBCs ordered. CTA abdomen pelvis did not detect GI bleed. Hepato splenomegaly with cirrhosis with portal hypertension is present. She was given Protonix 40 mg IV x1, started on LR 125 cc/hour. Review of Systems Review of Systems: All systems reviewed & are unremarkable except as noted in HPI and below (HPI) [facility] Past Medical History Medical History (Updated 08/23/24 @ 11:22 by Dania Ortega APRN) Diabetes Stomach discomfort Bloody stool Actinic keratosis Benign hypertension ALEENA (generalized anxiety disorder) Depression Hypertension Osteopenia Hypercholesterolemia Surgical History Surgical History Hx of dilation and curettage History of rectal polypectomy History of hysteroscopy (~01/17/17) Family History Family History Father Family history of chronic obstructive pulmonary disease Social History Social History Smoking status: Never smoker Second hand tobacco smoke exposure: No Smoking end date: 02/08/96 Alcohol intake: current Alcohol use details: consumes 3 beers weekly Substance use: never Substance use type: does not use Lack of Transportation: No Lack of Food: Never True Current Housing: I Have Housing Concerned About Future Housing: No Difficulty Paying Gas/Electric Bills: No Difficulty Paying for Meds: No Currently Unemployed: No Education: High School Diploma/GED Difficulty w/ Childcare or Family Care: No Gender identity (if verbalized by the patient): Female Meds Home Medications and Allergies Home Medications ?Medication ?Instructions ?Recorded ?Confirmed ?Type [id number] 18 mg-FA 400 tablet PO 01/20/22 08/23/24 History mcg-calcium 500 mg-vit K 50 mcg tablet (Women's Multivitamin) lisinopril 20 mg tablet 20 mg PO DAILY #90 tabs 02/14/24 08/23/24 Rx ergocalciferol (vitamin D2) 1,250 1,250 mcg PO WEEKLY #12 caps 04/09/24 08/23/24 Rx mcg (50,000 unit) capsule (Vitamin D2) metformin 500 mg tablet 500 mg PO DAILY #90 tabs 04/09/24 08/23/24 Rx sertraline 50 mg tablet 50 mg PO DAILY #30 tabs 07/19/24 08/23/24 Rx pantoprazole 40 mg tablet,delayed 40 mg PO QAM #90 tabs 08/23/24 08/23/24 Rx release Allergies Allergy/AdvReac Type Severity Reaction Status Date / Time No Known Allergies Allergy Verified 08/23/24 10:58 Vital Signs Vital Signs - 24 hr 08/24/24 16:20 08/24/24 18:21 08/24/24 18:21 Temperature 97.6 F Pulse Rate 94 85 Respiratory Rate 18 20 20 Blood Pressure 121/50 L 133/59 L Pulse Oximetry 99 100 Oxygen Delivery Room Air 08/24/24 20:10 Temperature 98.1 F Pulse Rate 81 Respiratory Rate 18 Blood Pressure 125/53 L Pulse Oximetry 100 Oxygen Delivery Exam Const: General: comfortable and no acute distress Other: A&O x3, obese HENMT: Mouth: Yes moist mucous membranes Eyes: Pupils: Equal, round and reactive pupils present Neck: Neck: supple Resp: Effort & Inspection: normal respiratory effort Auscultation: clear to auscultation bilaterally Cardio: Rate: regular rate Rhythm: regular rhythm Heart sounds: no gallops, no murmurs and no rubs GI: Inspection: non-distended GI Palp: Yes Soft to palpation Auscultation: normal bowel sounds : General: Yes bladder normal to palpation Neuro: Motor exam (neuro): 06/11 motor strength present throughout Extrem: General: no edema H&P: Results Labs Labs: Short CBC 08/24/24 Range/Units 16:39 WBC 4.5 (4.5-10.0) K/mm3 Hgb 6.6 L* (12.0-15.0) g/dL Hct 22.9 L (37.0-47.0) % Plt Count 165 (150-375) k/mm3 BMP 08/24/24 16:39 Sodium 138 Potassium 4.4 Chloride 106 Carbon Dioxide 23 BUN 21 H Creatinine 0.62 L Glucose 170 H Calcium 9.4 Liver Function 08/24/24 Range/Units 16:39 Total Bilirubin 0.6 (0.2-1.3) mg/dL AST 43 H (14-36) U/L ALT 21 (6-35) U/L Alkaline Phosphatase 122 (38-126) U/L Albumin 4.1 (3.5-5.1) g/dL Assessment and Plan Assessment and plan (1) Anemia: Code(s): D64.9 - Anemia, unspecified Status: Acute (2) Bloody stool: Code(s): K92.1 - Melena Status: Acute Plan This is a 69-year-old female who presents to [facility] ER on 08/24/2024 with a report of low hemoglobin. History of hypercholesterolemia, generalized anxiety disorder, depression, hypertension, remote alcohol use disorder. She had routine labs drawn with her PCP 3 days [employer], she was notified on day of admission her hemoglobin was 7.6. Hemoglobin in March was 12. She reports since April 2024 she has had intermittent lower abdominal pain and bloating and bright red rectal bleeding. As of late, her stools are dark brown. No nausea or vomiting. Of note, she had a rectal exam performed at PCPs office initially which was guaiac positive. Since March she has been taking 750 mg of ibuprofen daily for arthritis. In ER, she is hemodynamically stable breathing well on room air. Hemoglobin 6.6. 2 units of PRBCs ordered. CTA abdomen pelvis did not detect GI bleed. Hepato splenomegaly with cirrhosis with portal hypertension is present. She was given Protonix 40 mg IV x1, started on LR 125 cc/hour. ----- GI consulted from ER. She will remain on NPO diet. Continue lactated Ringer infusion. Check hemoglobin status post 2 units PRBC. Currently hemodynamically stable. Advised the patient to abstain from NSAIDs in the future. She voiced understanding. She is currently abstinent from alcohol use as well. Continue Protonix 40 mg IV b.i.d.. Patient would like to be full code. SCDs. Telemetry. Hospitalist MIPS Advance Care Plan I have confirmed that the patient's Advanced Care Plan is present, code status is documented, or surrogate decision maker is listed in patient medical record.: Yes Medication Reconciliation I have utilized all available resources to obtain, update and review the patients current medications (includes all prescriptions, OTC, herbals, cannabis, and nutritional supplements).: Yes
--- NOTE | 2024-08-24 22:16 | ADMGEN ---
This patient, Dashawn Doll, was admitted to Medical Room 256-01. Patient/family oriented to hospital policies and general routines including ID bracelet, bed and alarms, visiting hours, pain management, procedures, bathroom and other care routines, personal items, smoking policy, room service/diet, and visiting hours. Information on how to activate the Rapid Response Team has been discussed. Patient/Family are encouraged to report perceived risks to care and to ask questions if they do not understand what they are told or what they should do.
[2024-08-25] VITALS (17 sets, daily range): BP systolic 106–134; BP diastolic 43–73; PULSE 73–93; RESP 16–18; TEMP 36.1–36.7; O2SAT 93–99
[2024-08-25] MEDS: LACTATED RINGERS 1,000 ML 125 ML IV CONT ×3 (04:51→21:11)
[2024-08-25 05:15] LABS: Hematocrit 26.1 % (37.0-47.0); Hemoglobin 7.9 g/dL (12.0-15.0)
[2024-08-25] MEDS: PANTOPRAZOLE SODIUM IV 40 MG VIAL IV PUSH ×2 (10:03→20:24)
[2024-08-25 10:11] LABS: Magnesium 1.8 mg/dL (1.6-2.3)
--- NOTE | 2024-08-25 10:50 | P.CONGI_ITS ---
Assessment and Plan Assessment and plan (1) Iron deficiency anemia: Code(s): D50.9 - Iron deficiency anemia, unspecified Status: Acute Assessment and Plan: In the context of intermittent rectal bleeding, a differential diagnosis includes colorectal cancer, angiodysplasia, and portal hypertensive colopathy (given the high suspicion for alcohol-related cirrhosis). Inflammatory bowel disease is considered but less likely. To fully evaluate the source of her iron deficiency anemia and rectal bleeding, especially with suspected cirrhosis, an EGD and colonoscopy are indicated. These procedures rule out or rule in esophageal varices, portal hypertensive gastropathy, peptic ulcer disease, and gastric neoplasm in the upper GI tract, as well as identify the cause of lower GI bleeding. The patient will be prepped and scheduled for both EGD and colonoscopy on Tuesday. GI Consult Note Consult date/time: 08/25/24 10:50 Reason for consult: Iron deficiency anemia-rectal bleeding HPI: This 69-year-old female, Dashawn Doll, was admitted yesterday for intermittent bright red blood per rectum over the past four months, dating back to April. There was a declining hemoglobin, noted by her primary physician at 7.6 g/dL yesterday and confirmed at 6.6 g/dL on ER arrival. Her Hb in April was 12 g/dL. She denies nausea or vomiting. Se has received a total of 2 U of prbc. A significant social history includes chronic, heavy alcohol use for 7-10 years, consuming approximately 24 cans of beer weekly. Admission labs : Hgb 6.6 g/dL and evidence of iron deficiency (iron saturation 4%, ferritin 7.11 ng/mL). Liver function tests were relatively normal (AST 43, ALT 21), but imaging revealed cirrhosis with portal hypertension and hepatosplenomegaly, consistent with her extensive alcohol history and morbid obesity (MASLD). Review of Systems 2 Review of Systems: All systems reviewed & are unremarkable except as noted in HPI and below PMFSH Past Medical History Medical History Diabetes Stomach discomfort Bloody stool Actinic keratosis Benign hypertension ALEENA (generalized anxiety disorder) Depression Hypertension Osteopenia Hypercholesterolemia Surgical History Surgical History Hx of dilation and curettage History of rectal polypectomy History of hysteroscopy (~01/17/17) Family History Family History Father Family history of chronic obstructive pulmonary disease Social History Social History Smoking status: Former smoker Second hand tobacco smoke exposure: No Smoking end date: 02/08/96 Alcohol intake: never Alcohol use details: consumes 3 beers weekly Substance use: never Substance use type: does not use Do You Feel Safe in your Home?: Yes Lack of Transportation: No Lack of Food: Never True Current Housing: I Have Housing Concerned About Future Housing: No Difficulty Paying Gas/Electric Bills: No Difficulty Paying for Meds: No Currently Unemployed: No Education: Associate Degree Difficulty w/ Childcare or Family Care: No Gender identity (if verbalized by the patient): Female Spiritual care concerns: No Meds Home Medications and Allergies Home Medications ?Medication ?Instructions ?Recorded ?Confirmed ?Type [id number] 18 mg-FA 400 1 tablet PO DAILY 01/20/22 08/24/24 History mcg-calcium 500 mg-vit K 50 mcg tablet (Women's Multivitamin) lisinopril 20 mg tablet 20 mg PO DAILY #90 tabs 02/14/24 08/24/24 Rx ergocalciferol (vitamin D2) 1,250 1,250 mcg PO WEEKLY #12 caps 04/09/24 08/24/24 Rx mcg (50,000 unit) capsule (Vitamin D2) metformin 500 mg tablet 500 mg PO DAILY #90 tabs 04/09/24 08/24/24 Rx sertraline 50 mg tablet 50 mg PO DAILY #30 tabs 07/19/24 08/24/24 Rx pantoprazole 40 mg tablet,delayed 40 mg PO QAM #90 tabs 08/23/24 08/24/24 Rx release Allergies Allergy/AdvReac Type Severity Reaction Status Date / Time No Known Allergies Allergy Verified 08/23/24 10:58 Vital Signs Vital Signs - 24 hr 08/24/24 16:20 08/24/24 18:21 08/24/24 18:21 Temperature 97.6 F Pulse Rate 94 85 Respiratory Rate 18 20 20 Blood Pressure 121/50 L 133/59 L Pulse Oximetry 99 100 Oxygen Delivery Room Air 08/24/24 20:10 08/24/24 21:01 08/24/24 21:49 Temperature 98.1 F 98.5 F Pulse Rate 81 85 78 Respiratory Rate 18 18 18 Blood Pressure 125/53 L 113/82 117/51 L Pulse Oximetry 100 100 98 Oxygen Delivery 08/24/24 22:13 08/24/24 22:14 08/24/24 22:26 Temperature 97.6 F 98.3 F Pulse Rate 78 84 80 Respiratory Rate 18 18 15 Blood Pressure 129/96 H 120/82 Pulse Oximetry 98 100 96 Oxygen Delivery Room Air 08/24/24 22:43 08/24/24 23:43 08/25/24 00:00 Temperature 97.9 F 97.8 F Pulse Rate 75 78 77 Respiratory Rate 17 17 Blood Pressure 122/42 L 115/43 L Pulse Oximetry 99 100 Oxygen Delivery 08/25/24 00:43 08/25/24 01:35 08/25/24 01:50 Temperature 98.0 F 97.9 F 98.0 F Pulse Rate 74 77 80 Respiratory Rate 18 17 18 Blood Pressure 114/44 L 107/43 L 110/50 L Pulse Oximetry 99 99 98 Oxygen Delivery 08/25/24 02:05 08/25/24 03:05 08/25/24 04:00 Temperature 97.7 F 98.0 F Pulse Rate 75 73 78 Respiratory Rate 16 17 Blood Pressure 111/45 L 106/43 L Pulse Oximetry 97 98 Oxygen Delivery 08/25/24 04:05 08/25/24 04:22 08/25/24 04:46 Temperature 97.7 F 97.6 F 97.6 F Pulse Rate 77 82 82 Respiratory Rate 18 18 18 Blood Pressure 106/46 L 134/51 L 134/51 L Pulse Oximetry 98 93 93 Oxygen Delivery 08/25/24 08:00 08/25/24 08:00 Temperature Pulse Rate 79 Respiratory Rate Blood Pressure Pulse Oximetry Oxygen Delivery Room Air Exam 2 Narrative: GENERAL: [Well-appearing, well-nourished, and in no acute distress.] HEAD: [Normocephalic, atraumatic.] EYES: [PERRLA and EOMI.] ENT: Nares clear, no rhinorrhea or epistaxis. Mucous membranes moist. NECK: Supple. CHEST: [Clear to auscultation. No respiratory distress.] HEART: [Regular rate and rhythm]. No murmur heard. [Normal peripheral pulses.] ABDOMEN: [Soft, nondistended], [nontender], [No rigidity or guarding] EXTREMITIES: Normal range of motion. [No edema.] SKIN: Warm, dry, no rash. NEURO: [No focal deficits]. Alert and oriented [x3.] PSYCH: [Normal mood and affect.] Results Labs 08/25/24 05:02 08/24/24 16:39 Labs: Short CBC 08/24/24 08/25/24 Range/Units 16:39 05:02 WBC 4.5 (4.5-10.0) K/mm3 Hgb 6.6 L* 7.9 L (12.0-15.0) g/dL Hct 22.9 L 26.1 L (37.0-47.0) % Plt Count 165 (150-375) k/mm3 BMP 08/24/24 16:39 Sodium 138 Potassium 4.4 Chloride 106 Carbon Dioxide 23 BUN 21 H Creatinine 0.62 L Glucose 170 H Calcium 9.4 Liver Function 08/24/24 Range/Units 16:39 Total Bilirubin 0.6 (0.2-1.3) mg/dL AST 43 H (14-36) U/L ALT 21 (6-35) U/L Alkaline Phosphatase 122 (38-126) U/L Albumin 4.1 (3.5-5.1) g/dL
--- NOTE | 2024-08-25 12:45 | P.PNIM_ITS ---
Progress Note: A&P Assessment and Plan (1) Anemia: Code(s): D64.9 - Anemia, unspecified Status: Acute Assessment and Plan: Patient had reported intermittent bright red rectal bleeding for a few months with a slow decline in her HGB since then. Patient with history of chronic ETOH abuse and iron panel showing iron deficiency anemia. CT scan showe dno active bleed but did report cirrhosis with portal hypertension and hepatoslenomegaly. GI consulted for further evaluation and treatment. * Plan for EGD/Colonoscopy 08/27/2024 for evaluation and potential cause * Clear liquid diet then NPO midnight 08/27 * Continue IV LR 125 * antiemetics * Avoid NSAIDS (patient chronically uses ibuprofen daily) * PPI BID * Trend H&H * Transfuse if Hgb <7.0 (2) Bloody stool: Code(s): K92.1 - Melena Status: Acute Assessment and Plan: SEE Above (3) Diabetes: Code(s): E11.9 - Type 2 diabetes mellitus without complications Status: Acute Assessment and Plan: * holding metformin * low-dose SSI * currently on a clear liquid diet can have diabetic able to advance * Accu-Cheks a.cVern HS * hypoglycemic protocol (4) Cirrhosis: Code(s): K74.60 - Unspecified cirrhosis of liver Status: Acute Assessment and Plan: CT abdomen showing cirrhosis with portal hypertension GI has been consulted. Patient reports chronic alcohol use. * Encouraged immediate cessation from alcohol Plan Code status: Full code per patient DVT prophylaxis: SCD Stress ulcer prophylaxis: Protonix 40 BID PT/OT notes: ambulatory Disposition: patient continues admission to the medical unit for anemia secondary to possible GI bleed patient is scheduled for EGD and colonoscopy 08/27/2024 will continue to trend H&H has already received 2 units PRBCs. Patient is ambulatory on own and plans to return home at discharge. Time Spent With Patient Time with patient: 15 - 25 minutes Subjective Date/time seen: 08/25/24 12:45 Interval history: Patient was a 69-year-old female who presents to [facility] ER on 08/24/2024 with a report of low hemoglobin. History of hypercholesterolemia, generalized anxiety disorder, depression, hypertension, remote alcohol use disorder. 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 Hemoglobin in March was 12. 08/25/2024: Patient denied any ABD pain, constipation, diarrhea, fever, chills, CP, N/V or SOB. Patient states she is comfortable and tolerating clear liquids. Hgb after 2 units was 7.9 Review of Systems Review of Systems: All systems reviewed & are unremarkable except as noted in HPI and below Exam Const: General: comfortable and no acute distress Other: A&O x3, obese HENMT: Mouth: Yes moist mucous membranes Eyes: Pupils: Equal, round and reactive pupils present Neck: Neck: supple Resp: Effort & Inspection: normal respiratory effort Auscultation: clear to auscultation bilaterally Cardio: Rate: regular rate Rhythm: regular rhythm Heart sounds: no gallops, no murmurs and no rubs GI: Inspection: non-distended Auscultation: normal bowel sounds : General: Yes bladder normal to palpation Bimanual exam- vagina & uterus: bladder normal to palpation Neuro: Cranial nerves: Yes Equal, round and reactive pupils present Speech: normal speech Motor exam (neuro): 5/5 motor strength present throughout Extrem: General: normal to inspection and no edema Psych: Mental Status: mental status grossly normal Affect: normal affect Objective Data Vital Signs Vital Signs: Vital Signs - 24 hr 08/24/24 16:20 08/24/24 18:21 08/24/24 18:21 Temperature 97.6 F Pulse Rate 94 85 Respiratory Rate 18 20 20 Blood Pressure 121/50 L 133/59 L Pulse Oximetry 99 100 Oxygen Delivery Room Air 08/24/24 20:10 08/24/24 21:01 08/24/24 21:49 Temperature 98.1 F 98.5 F Pulse Rate 81 85 78 Respiratory Rate 18 18 18 Blood Pressure 125/53 L 113/82 117/51 L Pulse Oximetry 100 100 98 Oxygen Delivery 08/24/24 22:13 08/24/24 22:14 08/24/24 22:26 Temperature 97.6 F 98.3 F Pulse Rate 78 84 80 Respiratory Rate 18 18 15 Blood Pressure 129/96 H 120/82 Pulse Oximetry 98 100 96 Oxygen Delivery Room Air 08/24/24 22:43 08/24/24 23:43 08/25/24 00:00 Temperature 97.9 F 97.8 F Pulse Rate 75 78 77 Respiratory Rate 17 17 Blood Pressure 122/42 L 115/43 L Pulse Oximetry 99 100 Oxygen Delivery 08/25/24 00:43 08/25/24 01:35 08/25/24 01:50 Temperature 98.0 F 97.9 F 98.0 F Pulse Rate 74 77 80 Respiratory Rate 18 17 18 Blood Pressure 114/44 L 107/43 L 110/50 L Pulse Oximetry 99 99 98 Oxygen Delivery 08/25/24 02:05 08/25/24 03:05 08/25/24 04:00 Temperature 97.7 F 98.0 F Pulse Rate 75 73 78 Respiratory Rate 16 17 Blood Pressure 111/45 L 106/43 L Pulse Oximetry 97 98 Oxygen Delivery 08/25/24 04:05 08/25/24 04:22 08/25/24 04:46 Temperature 97.7 F 97.6 F 97.6 F Pulse Rate 77 82 82 Respiratory Rate 18 18 18 Blood Pressure 106/46 L 134/51 L 134/51 L Pulse Oximetry 98 93 93 Oxygen Delivery 08/25/24 08:00 08/25/24 08:00 08/25/24 11:46 Temperature Pulse Rate 79 Respiratory Rate Blood Pressure Pulse Oximetry 96 Oxygen Delivery Room Air Room Air Intake/Output Intake/Output: Intake & Output 08/22/24 08/23/24 08/24/24 08/25/24 23:59 23:59 23:59 23:59 Intake Total 1250 1237.5 Output Total 750 Balance 1250 487.5 Meds/Results Medications: Active Medications Generic Name Dose Route Start Last Admin Trade Name Freq PRN Reason Stop Dose Admin Acetaminophen 650 mg 08/24/24 20:24 08/24/24 20:51 Acetaminophen 325 Mg Tablet PO 650 mg Q4H PRN Administration Mild Pain (1-3) or Fever Dextrose 12.5 gm 08/25/24 09:23 Dextrose 50% 25 Gm/50 Ml Syringe IV PUSH PRN PRN Hypoglycemia Protocol Glucagon 1 mg 08/25/24 09:23 Glucagon For Inj 1 Mg Vial IM PRN PRN Hypoglycemia Protocol Glucose 15 gm 08/25/24 09:23 Glucose Oral Gel 15 Gm Of Glucse In 37.5 Gm Tube PO PRN PRN Hypoglycemia Protocol Hydromorphone HCl 0.5 mg 08/25/24 09:23 Hydromorphone Hcl Inj (*Crx) 2 Mg/Ml Vial IV PUSH Q3H PRN Pain Rated 7-10 Lactated Ringer's 1,000 mls @ 125 mls/hr 08/24/24 20:25 08/25/24 09:09 Lr - Lactated Ringers Iv IV CONT 125 mls/hr .Q8H YOUSIF Administration Dextrose 1,000 mls @ 100 mls/hr 08/25/24 09:23 Dextrose 5% 1,000 Ml IVPB PRN PRN Hypoglycemia Protocol Insulin Aspart 2 - 5 units 08/25/24 12:00 08/25/24 11:53 Insulin Aspart (*Bkc) 100 Units/Ml SUB-Q Not Given TIDWM YOUSIF Protocol Ondansetron HCl 4 mg 08/24/24 20:24 08/24/24 20:51 Ondansetron Inj 4 Mg/2 Ml Vial IV PUSH 4 mg Q4H PRN Administration Nausea Polyethylene Glycol 119 gm 08/25/24 20:00 Polyethylene Glycol 3350 238 Gm Bottle PO 08/26/24 05:01 BID@0500,2000 [facility] Sertraline HCl 50 mg 08/26/24 09:00 Sertraline Hcl 50 Mg Tablet PO DAILY [facility] Radiology Results: ITS Impressions Abdomen/Pelvis CTA 08/24/24 19:53 IMPRESSION: No active GI bleeding detected. Hepatosplenomegaly. Cirrhosis with portal hypertension. Labs Labs: Laboratory Results - last 24 hr 08/24/24 08/24/24 08/25/24 16:39 19:03 05:02 WBC 4.5 RBC 2.85 L Hgb 6.6 L* 7.9 L Hct 22.9 L 26.1 L MCV 80.4 MCH 23.2 L MCHC 28.8 L RDW 15.9 H Plt Count 165 MPV 9.1 Immature Gran % (Auto) 0.7 H Neut % (Auto) 58.7 Lymph % (Auto) 24.9 Dillon % (Auto) 8.3 Eos % (Auto) 6.7 H Baso % (Auto) 0.7 Lymph # (Auto) 1.11 Dillon # (Auto) 0.4 Eos # (Auto) 0.3 Baso # (Auto) 0.0 Abs Immat Gran (auto) 0.03 Absolute Neuts (auto) 2.6 Absolute Nucleated RBC 0.000 Nucleated RBC % 0.0 Absolute Retic 0.07 Percent Retic 2.53 Immature Retic Fraction 23.5 H Retic Hgb Content 21.2 L PT 15.4 H INR 1.2 APTT 31.5 Sodium 138 Potassium 4.4 Chloride 106 Carbon Dioxide 23 Anion Gap 9 BUN 21 H Creatinine 0.62 L Estim Creat Clear Calc 96 Estimated GFR > 60 Glucose 170 H POC Capillary Glucose Calcium 9.4 Magnesium 1.8 Iron 18 L TIBC 463 H % Saturation 4 L Transferrin 328 Ferritin 7.11 L Total Bilirubin 0.6 AST 43 H ALT 21 Alkaline Phosphatase 122 Lactate Dehydrogenase 197 Total Protein 8.0 Albumin 4.1 Vitamin B12 826.0 Folate 15.3 TSH (Reflex) 1.600 Blood Type A Positive Antibody Screen Negative Crossmatch See Detail 08/25/24 11:59 WBC RBC Hgb Hct MCV MCH MCHC RDW Plt Count MPV Immature Gran % (Auto) Neut % (Auto) Lymph % (Auto) Dillon % (Auto) Eos % (Auto) Baso % (Auto) Lymph # (Auto) Dillon # (Auto) Eos # (Auto) Baso # (Auto) Abs Immat Gran (auto) Absolute Neuts (auto) Absolute Nucleated RBC Nucleated RBC % Absolute Retic Percent Retic Immature Retic Fraction Retic Hgb Content PT INR APTT Sodium Potassium Chloride Carbon Dioxide Anion Gap BUN Creatinine Estim Creat Clear Calc Estimated GFR Glucose POC Capillary Glucose 107 H Calcium Magnesium Iron TIBC % Saturation Transferrin Ferritin Total Bilirubin AST ALT Alkaline Phosphatase Lactate Dehydrogenase Total Protein Albumin Vitamin B12 Folate TSH (Reflex) Blood Type Antibody Screen Crossmatch Quality VTE Prophylaxis VTE prophylaxis: mechanical ordered -Patient's previous records reviewed on admission -ER notes reviewed in detail on admission -discussed all findings and current treatment plan with patient/Family/POA -Consultations reviewed for recommendations -Patient's disposition for safe discharge discussed with telephonic case manager Dictation performed by [employer] direct speech recognition software, therefore tetryl nitrator operator variants and typographical errors may occur. Hospitalist MIPS Advance Care Plan I have confirmed that the patient's Advanced Care Plan is present, code status is documented, or surrogate decision maker is listed in patient medical record.: Yes Medication Reconciliation I have utilized all available resources to obtain, update and review the patients current medications (includes all prescriptions, OTC, herbals, cannabis, and nutritional supplements).: Yes The patient is not eligible for med reconciliation; the patient is in a emergent medical situation where delaying treatment would jeopardize the patients health.: No
[2024-08-26] VITALS (9 sets, daily range): BP systolic 116–157; BP diastolic 56–65; PULSE 68–79; RESP 16–18; TEMP 36.6–37; O2SAT 92–100
[2024-08-26 04:58] LABS: Hematocrit 25.7 % (37.0-47.0); Hemoglobin 7.8 g/dL (12.0-15.0); Mean Corpuscular HGB Conc 30.4 g/dl (32-36); Mean Corpuscular Hemoglobin 24.4 pg (26-34); Mean Corpuscular Volume 80.3 fl (80-100); Platelet Count Result 148 k/mm3 (150-375); Red Blood Count 3.20 M/mm3 (4.2-5.4); White Blood Count 4.7 K/mm3 (4.5-10.0)
[2024-08-26 05:27] LABS: Alanine Aminotransferase 19 U/L (6-35); Albumin Level 3.7 g/dL (3.5-5.1); Alkaline Phosphatase 125 U/L (38-126); Anion Gap 8 mmol/L (4-12); Aspartate Amino Transferase 49 U/L (14-36); Bilirubin,Total 1.0 mg/dL (0.2-1.3); Blood Urea Nitrogen 11 mg/dL (7-17); Calcium 9.3 mg/dL (8.4-10.2); Carbon Dioxide 25 mmol/L (22-30); Chloride 103 mmol/L (98-107); Estimated CRCL calculation 91 ml/min; Estimated Glomerular Filt Rate > 60; Glucose 98 mg/dL (65-110); Magnesium 1.7 mg/dL (1.6-2.3); Potassium 4.0 mmol/L (3.4-5.0); Sodium 136 mmol/L (137-145); Total Protein 7.3 g/dL (6.3-8.2)
[2024-08-26] MEDS: LACTATED RINGERS 1,000 ML 125 ML IV CONT (06:32)
[2024-08-26] MEDS: PANTOPRAZOLE SODIUM IV 40 MG VIAL IV PUSH (08:13)
[2024-08-26] MEDS: SERTRALINE HCL 50 MG TABLET PO (08:13)
[2024-08-26] MEDS: ACETAMINOPHEN 325 MG TABLET 650 MG PO (08:13)
--- NOTE | 2024-08-26 08:51 | P.PNIM_ITS ---
Progress Note: A&P Assessment and Plan (1) Anemia: Code(s): D64.9 - Anemia, unspecified Status: Acute Assessment and Plan: Patient had reported intermittent bright red rectal bleeding for a few months with a slow decline in her HGB since then. Patient with history of chronic ETOH abuse and iron panel showing iron deficiency anemia. CT scan showe dno active bleed but did report cirrhosis with portal hypertension and hepatoslenomegaly. GI consulted for further evaluation and treatment. * Plan for EGD/Colonoscopy 08/27/2024 for evaluation and potential cause * Clear liquid diet then NPO midnight 08/27 * Bowel prep * Continue IV LR 125 * antiemetics * Avoid NSAIDS (patient chronically uses ibuprofen daily) * PPI BID * Trend H&H * Transfuse if Hgb <7.0 (2) Bloody stool: Code(s): K92.1 - Melena Status: Acute Assessment and Plan: SEE Above (3) Diabetes: Code(s): E11.9 - Type 2 diabetes mellitus without complications Status: Acute Assessment and Plan: * holding metformin * low-dose SSI * currently on a clear liquid diet can have diabetic able to advance * Accu-[place] a.cVern HS * hypoglycemic protocol (4) Cirrhosis: Code(s): K74.60 - Unspecified cirrhosis of liver Status: Acute Assessment and Plan: CT abdomen showing cirrhosis with portal hypertension GI has been consulted. Patient reports chronic alcohol use. * Encouraged immediate cessation from alcohol Plan Code status: Full code per patient DVT prophylaxis: SCD Stress ulcer prophylaxis: Protonix 40 BID PT/OT notes: ambulatory Disposition: patient continues admission to the medical unit for anemia secondary to possible GI bleed patient is scheduled for EGD and colonoscopy 08/27/2024 will continue to trend H&H has already received 2 units PRBCs. Patient is ambulatory on own and plans to return home at discharge. Time Spent With Patient Time with patient: 15 - 25 minutes Subjective Date/time seen: 08/26/24 08:51 Interval history: Patient was a 69-year-old female who presents to [facility] ER on 08/24/2024 with a report of low hemoglobin. History of hypercholesterolemia, generalized anxiety disorder, depression, hypertension, remote alcohol use disorder. 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 Hemoglobin in March was 12. 08/26/2024: Hgb stable at 7.8. Patient up in chair no acute issues. Denies ABD pain or further rectal bleeding currently. Review of Systems Review of Systems: All systems reviewed & are unremarkable except as noted in HPI and below Exam Const: General: comfortable and no acute distress Other: A&O x3, obese HENMT: Mouth: Yes moist mucous membranes Eyes: Pupils: Equal, round and reactive pupils present Neck: Neck: supple Resp: Effort & Inspection: normal respiratory effort Auscultation: clear to auscultation bilaterally Cardio: Rate: regular rate Rhythm: regular rhythm Heart sounds: no gallops, no murmurs and no rubs GI: Inspection: non-distended Auscultation: normal bowel sounds : General: Yes bladder normal to palpation Bimanual exam- vagina & uterus: bladder normal to palpation Neuro: Cranial nerves: Yes Equal, round and reactive pupils present Speech: normal speech Motor exam (neuro): 5/5 motor strength present throughout Extrem: General: normal to inspection and no edema Psych: Mental Status: mental status grossly normal Affect: normal affect Objective Data Vital Signs Vital Signs: Vital Signs - 24 hr 08/25/24 11:46 08/25/24 12:00 08/25/24 14:05 Temperature 97.3 F L Pulse Rate 73 93 Respiratory Rate 18 Blood Pressure 111/73 Pulse Oximetry 96 96 Oxygen Delivery Room Air 08/25/24 16:00 08/25/24 20:00 08/25/24 20:00 Temperature Pulse Rate 79 78 Respiratory Rate Blood Pressure Pulse Oximetry Oxygen Delivery Room Air 08/25/24 21:15 08/26/24 00:00 08/26/24 04:00 Temperature 97 F L Pulse Rate 78 79 72 Respiratory Rate 18 Blood Pressure 117/56 L Pulse Oximetry 99 Oxygen Delivery 08/26/24 05:40 Temperature 98.6 F Pulse Rate 68 Respiratory Rate 18 Blood Pressure 157/65 H Pulse Oximetry 92 Oxygen Delivery Intake/Output Intake/Output: Intake & Output 08/23/24 08/24/24 08/25/24 08/26/24 23:59 23:59 23:59 23:59 Intake Total 1250 3317.5 1150 Output Total 1350 Balance 1250 1967.5 1150 Meds/Results Medications: Active Medications Generic Name Dose Route Start Last Admin Trade Name Freq PRN Reason Stop Dose Admin Acetaminophen 650 mg 08/24/24 20:24 08/26/24 08:13 Acetaminophen 325 Mg Tablet PO 650 mg Q4H PRN Administration Mild Pain (1-3) or Fever Dextrose 12.5 gm 08/25/24 09:23 Dextrose 50% 25 Gm/50 Ml Syringe IV PUSH PRN PRN Hypoglycemia Protocol Glucagon 1 mg 08/25/24 09:23 Glucagon For Inj 1 Mg Vial IM PRN PRN Hypoglycemia Protocol Glucose 15 gm 08/25/24 09:23 Glucose Oral Gel 15 Gm Of Glucse In 37.5 Gm Tube PO PRN PRN Hypoglycemia Protocol Hydromorphone HCl 0.5 mg 08/25/24 09:23 Hydromorphone Hcl Inj (*Crx) 2 Mg/Ml Vial IV PUSH Q3H PRN Pain Rated 7-10 Lactated Ringer's 1,000 mls @ 125 mls/hr 08/24/24 20:25 08/26/24 06:32 Lr - Lactated Ringers Iv IV CONT 125 mls/hr .Q8H YOUSIF Administration Dextrose 1,000 mls @ 100 mls/hr 08/25/24 09:23 Dextrose 5% 1,000 Ml IVPB PRN PRN Hypoglycemia Protocol Insulin Aspart 2 - 5 units 08/25/24 12:00 08/26/24 08:12 Insulin Aspart (*Bkc) 100 Units/Ml SUB-Q Not Given TIDWM YOUSIF Protocol Ondansetron HCl 4 mg 08/24/24 20:24 08/24/24 20:51 Ondansetron Inj 4 Mg/2 Ml Vial IV PUSH 4 mg Q4H PRN Administration Nausea Pantoprazole Sodium 40 mg 08/25/24 21:00 08/26/24 08:13 Pantoprazole Sodium Iv 40 Mg Vial IV PUSH 40 mg Q12HR YOUSIF Administration Polyethylene Glycol 119 gm 08/26/24 20:00 Polyethylene Glycol 3350 238 Gm Bottle PO 08/27/24 05:01 BID@0500,2000 YOUSIF Sertraline HCl 50 mg 08/26/24 09:00 08/26/24 08:13 Sertraline Hcl 50 Mg Tablet PO 50 mg DAILY YOUSIF Administration Radiology Results: ITS Impressions Abdomen/Pelvis CTA 08/24/24 19:53 IMPRESSION: No active GI bleeding detected. Hepatosplenomegaly. Cirrhosis with portal hypertension. Labs Labs: Laboratory Results - last 24 hr 08/25/24 08/25/24 08/25/24 05:02 11:59 17:07 WBC RBC Hgb Hct MCV MCH MCHC RDW Plt Count MPV Sodium Potassium Chloride Carbon Dioxide Anion Gap BUN Creatinine Estim Creat Clear Calc Estimated GFR Glucose POC Capillary Glucose 107 H 99 Calcium Magnesium 1.8 Total Bilirubin AST ALT Alkaline Phosphatase Total Protein Albumin 08/25/24 08/26/24 08/26/24 21:15 04:25 08:05 WBC 4.7 RBC 3.20 L Hgb 7.8 L Hct 25.7 L MCV 80.3 MCH 24.4 L D MCHC 30.4 L RDW 16.2 H Plt Count 148 L MPV 9.2 Sodium 136 L Potassium 4.0 Chloride 103 Carbon Dioxide 25 Anion Gap 8 BUN 11 D Creatinine 0.65 L Estim Creat Clear Calc 91 Estimated GFR > 60 Glucose 98 POC Capillary Glucose 97 106 H Calcium 9.3 Magnesium 1.7 Total Bilirubin 1.0 AST 49 H ALT 19 Alkaline Phosphatase 125 Total Protein 7.3 Albumin 3.7 Quality VTE Prophylaxis VTE prophylaxis: mechanical ordered -Patient's previous records reviewed on admission -ER notes reviewed in detail on admission -discussed all findings and current treatment plan with patient/Family/POA -Consultations reviewed for recommendations -Patient's disposition for safe discharge discussed with binder caser Dictation performed by [employer] direct speech recognition software, therefore snowsport instructor variants and typographical errors may occur. Hospitalist MIPS Advance Care Plan I have confirmed that the patient's Advanced Care Plan is present, code status is documented, or surrogate decision maker is listed in patient medical record.: Yes Medication Reconciliation I have utilized all available resources to obtain, update and review the patients current medications (includes all prescriptions, OTC, herbals, cannabis, and nutritional supplements).: Yes The patient is not eligible for med reconciliation; the patient is in a emergent medical situation where delaying treatment would jeopardize the patients health.: No
--- NOTE | 2024-08-26 11:32 | WPDGIPROGNO ---
Progress Note: A&P Assessment and Plan (1) Iron deficiency anemia: Code(s): D50.9 - Iron deficiency anemia, unspecified Status: Acute Assessment and Plan: As discussed yesterday, the patient has iron deficiency anemia and was admitted with intermittent rectal bleeding. Will administer 1 dose of intravenous iron 500 mg today. Will also plan for EGD and colonoscopy tomorrow to stab-the cause of chronic GI bleeding. Orders placed. Subjective Date/time seen: 08/26/24 11:32 Objective Data Vital Signs Vital Signs: Vital Signs - 24 hr 08/25/24 11:46 08/25/24 12:00 08/25/24 14:05 Temperature 97.3 F L Pulse Rate 73 93 Respiratory Rate 18 Blood Pressure 111/73 Pulse Oximetry 96 96 Oxygen Delivery Room Air 08/25/24 16:00 08/25/24 20:00 08/25/24 20:00 Temperature Pulse Rate 79 78 Respiratory Rate Blood Pressure Pulse Oximetry Oxygen Delivery Room Air 08/25/24 21:15 08/26/24 00:00 08/26/24 04:00 Temperature 97 F L Pulse Rate 78 79 72 Respiratory Rate 18 Blood Pressure 117/56 L Pulse Oximetry 99 Oxygen Delivery 08/26/24 05:40 Temperature 98.6 F Pulse Rate 68 Respiratory Rate 18 Blood Pressure 157/65 H Pulse Oximetry 92 Oxygen Delivery Intake/Output Intake/Output: Intake & Output 08/23/24 08/24/24 08/25/24 08/26/24 23:59 23:59 23:59 23:59 Intake Total 1250 3317.5 1150 Output Total 1350 Balance 1250 1967.5 1150 Meds/Results Medications: Active Medications Generic Name Dose Route Start Last Admin Trade Name Freq PRN Reason Stop Dose Admin Acetaminophen 650 mg 08/24/24 20:24 08/26/24 08:13 Acetaminophen 325 Mg Tablet PO 650 mg Q4H PRN Administration Mild Pain (1-3) or Fever Dextrose 12.5 gm 08/25/24 09:23 Dextrose 50% 25 Gm/50 Ml Syringe IV PUSH PRN PRN Hypoglycemia Protocol Glucagon 1 mg 08/25/24 09:23 Glucagon For Inj 1 Mg Vial IM PRN PRN Hypoglycemia Protocol Glucose 15 gm 08/25/24 09:23 Glucose Oral Gel 15 Gm Of Glucse In 37.5 Gm Tube PO PRN PRN Hypoglycemia Protocol Hydromorphone HCl 0.5 mg 08/25/24 09:23 Hydromorphone Hcl Inj (*Crx) 2 Mg/Ml Vial IV PUSH Q3H PRN Pain Rated 7-10 Lactated Ringer's 1,000 mls @ 125 mls/hr 08/24/24 20:25 08/26/24 06:32 Lr - Lactated Ringers Iv IV CONT 125 mls/hr .Q8H YOUSIF Administration Dextrose 1,000 mls @ 100 mls/hr 08/25/24 09:23 Dextrose 5% 1,000 Ml IVPB PRN PRN Hypoglycemia Protocol Insulin Aspart 2 - 5 units 08/25/24 12:00 08/26/24 08:12 Insulin Aspart (*Bkc) 100 Units/Ml SUB-Q Not Given TIDWM YOUSIF Protocol Ondansetron HCl 4 mg 08/24/24 20:24 08/24/24 20:51 Ondansetron Inj 4 Mg/2 Ml Vial IV PUSH 4 mg Q4H PRN Administration Nausea Polyethylene Glycol 119 gm 08/26/24 20:00 Polyethylene Glycol 3350 238 Gm Bottle PO 08/27/24 05:01 BID@0500,2000 YOUSIF Sertraline HCl 50 mg 08/26/24 09:00 08/26/24 08:13 Sertraline Hcl 50 Mg Tablet PO 50 mg DAILY YOUSIF Administration Radiology Results: ITS Impressions Abdomen/Pelvis CTA 08/24/24 19:53 IMPRESSION: No active GI bleeding detected. Hepatosplenomegaly. Cirrhosis with portal hypertension. Labs Labs: Laboratory Results - last 24 hr 08/25/24 08/25/24 08/25/24 11:59 17:07 21:15 WBC RBC Hgb Hct MCV MCH MCHC RDW Plt Count MPV Sodium Potassium Chloride Carbon Dioxide Anion Gap BUN Creatinine Estim Creat Clear Calc Estimated GFR Glucose POC Capillary Glucose 107 H 99 97 Calcium Magnesium Total Bilirubin AST ALT Alkaline Phosphatase Total Protein Albumin 08/26/24 08/26/24 04:25 08:05 WBC 4.7 RBC 3.20 L Hgb 7.8 L Hct 25.7 L MCV 80.3 MCH 24.4 L D MCHC 30.4 L RDW 16.2 H Plt Count 148 L MPV 9.2 Sodium 136 L Potassium 4.0 Chloride 103 Carbon Dioxide 25 Anion Gap 8 BUN 11 D Creatinine 0.65 L Estim Creat Clear Calc 91 Estimated GFR > 60 Glucose 98 POC Capillary Glucose 106 H Calcium 9.3 Magnesium 1.7 Total Bilirubin 1.0 AST 49 H ALT 19 Alkaline Phosphatase 125 Total Protein 7.3 Albumin 3.7
[2024-08-26] MEDS: IRON SUCROSE COMPLEX 400 MG, IRON SUCROSE COMPLEX 100 MG in SODIUM CHLORIDE 0.9% IV 250 ML 78.57 MG IVPB (12:53)
[2024-08-27] VITALS (10 sets, daily range): BP systolic 116–127; BP diastolic 50–67; PULSE 67–79; RESP 16–20; TEMP 36.3–36.6; O2SAT 97–100
--- NOTE | 2024-08-27 02:48 | PC.NURSE ---
patient started colonoscopy prep at 20:00 last night, jaydon then pt was disconnected from IVF by her request, later on I tried to connect her and she refused.
[2024-08-27 05:22] LABS: Hematocrit 26.2 % (37.0-47.0); Hemoglobin 7.7 g/dL (12.0-15.0); Mean Corpuscular HGB Conc 29.4 g/dl (32-36); Mean Corpuscular Hemoglobin 24.2 pg (26-34); Mean Corpuscular Volume 82.4 fl (80-100); Platelet Count Result 141 k/mm3 (150-375); Red Blood Count 3.18 M/mm3 (4.2-5.4); White Blood Count 4.5 K/mm3 (4.5-10.0)
[2024-08-27 05:48] LABS: Alanine Aminotransferase 20 U/L (6-35); Albumin Level 3.7 g/dL (3.5-5.1); Alkaline Phosphatase 127 U/L (38-126); Anion Gap 8 mmol/L (4-12); Aspartate Amino Transferase 48 U/L (14-36); Bilirubin,Total 1.0 mg/dL (0.2-1.3); Blood Urea Nitrogen 8 mg/dL (7-17); Calcium 9.2 mg/dL (8.4-10.2); Carbon Dioxide 25 mmol/L (22-30); Chloride 107 mmol/L (98-107); Estimated CRCL calculation 89 ml/min; Estimated Glomerular Filt Rate > 60; Glucose 107 mg/dL (65-110); Magnesium 1.7 mg/dL (1.6-2.3); Potassium 4.1 mmol/L (3.4-5.0); Sodium 140 mmol/L (137-145); Total Protein 7.5 g/dL (6.3-8.2)
--- NOTE | 2024-08-27 06:52 | PC.NURSE ---
patient is getting colono prep, last BM just now, liquid yellow BM, GI were updated. please monitor.
--- NOTE | 2024-08-27 13:40 | WPDANESEPPF ---
Anes - Initial Pre Proc Eval Procedure: Operation Date: 08/27/24 14:45 Proposed Procedures p EGD & Diagnostic Colonoscopy - Hawk Shane MD Date/Time: 08/27/24 13:40 Surgeon: Meenakshi Duran MD Pre Op Diagnosis: Acute blood loss anemia, GI bleeding Patient Data Age: 69 Gender: F Height: 1.68 m Weight: 110.5 kg Last Vital Signs Temp 36.4 C L 08/27/24 13:25 Pulse 79 08/27/24 13:25 Resp 16 08/27/24 13:25 BP 127/54 L 08/27/24 13:25 Pulse Ox 100 08/27/24 13:25 O2 Del Method Room Air 08/27/24 13:25 Allergies Allergy/AdvReac Type Severity Reaction Status Date / Time No Known Allergies Allergy Verified 08/27/24 13:36 Home Medications ?Medication ?Instructions ?Recorded ?Confirmed ?Type [id number] 18 mg-FA 400 1 tablet PO DAILY 01/20/22 08/24/24 History mcg-calcium 500 mg-vit K 50 mcg tablet (Women's Multivitamin) lisinopril 20 mg tablet 20 mg PO DAILY #90 tabs 02/14/24 08/24/24 Rx ergocalciferol (vitamin D2) 1,250 1,250 mcg PO WEEKLY #12 caps 04/09/24 08/24/24 Rx mcg (50,000 unit) capsule (Vitamin D2) metformin 500 mg tablet 500 mg PO DAILY #90 tabs 04/09/24 08/24/24 Rx sertraline 50 mg tablet 50 mg PO DAILY #30 tabs 07/19/24 08/24/24 Rx pantoprazole 40 mg tablet,delayed 40 mg PO QAM #90 tabs 08/23/24 08/24/24 Rx release Laboratory Tests 08/26/24 08/26/24 08/27/24 16:54 20:36 05:13 WBC 4.5 K/mm3 (4.5-10.0) RBC 3.18 L M/mm3 (4.2-5.4) Hgb 7.7 L g/dL (12.0-15.0) Hct 26.2 L % (37.0-47.0) MCV 82.4 fl (80-100) MCH 24.2 L pg (26-34) MCHC 29.4 L g/dl (32-36) RDW 16.4 H % (11.5-14.5) Plt Count 141 L k/mm3 (150-375) MPV 8.7 fl (7.4-10.4) Sodium 140 mmol/L (137-145) Potassium 4.1 mmol/L (3.4-5.0) Chloride 107 mmol/L (98-107) Carbon Dioxide 25 mmol/L (22-30) Anion Gap 8 mmol/L (4-12) BUN 8 mg/dL (7-17) Creatinine 0.66 L mg/dL (0.7-1.0) Estim Creat Clear Calc 89 ml/min Estimated GFR > 60 (59 - ) Glucose 107 mg/dL (65-110) POC Capillary Glucose 86 mg/dl 99 mg/dl (65-105) (65-105) Calcium 9.2 mg/dL (8.4-10.2) Magnesium 1.7 mg/dL (1.6-2.3) Total Bilirubin 1.0 mg/dL (0.2-1.3) AST 48 H U/L (14-36) ALT 20 U/L (6-35) Alkaline Phosphatase 127 H U/L (38-126) Total Protein 7.5 g/dL (6.3-8.2) Albumin 3.7 g/dL (3.5-5.1) 08/27/24 08/27/24 08/27/24 08:16 13:14 13:34 WBC RBC Hgb Hct MCV MCH MCHC RDW Plt Count MPV Sodium Potassium Chloride Carbon Dioxide Anion Gap BUN Creatinine Estim Creat Clear Calc Estimated GFR Glucose POC Capillary Glucose 110 H mg/dl 87 mg/dl 71 mg/dl (65-105) (65-105) (65-105) Calcium Magnesium Total Bilirubin AST ALT Alkaline Phosphatase Total Protein Albumin Patient hx anesthesia problems: none Family hx anesthesia problems: none Results Review: All pre-operative results and documents have been reviewed as part of the pre-operative evaluation. [facility] Past Medical History Medical History Diabetes Stomach discomfort Bloody stool Actinic keratosis Benign hypertension ALEENA (generalized anxiety disorder) Depression Hypertension Osteopenia Hypercholesterolemia Surgical History Surgical History Hx of dilation and curettage History of rectal polypectomy History of hysteroscopy (~01/17/17) Family History Family History Father Family history of chronic obstructive pulmonary disease Social History Social History Smoking status: Former smoker Second hand tobacco smoke exposure: No Smoking end date: 02/08/96 Alcohol intake: never Alcohol use details: consumes 3 beers weekly Substance use: never Substance use type: does not use Do You Feel Safe in your Home?: Yes Lack of Transportation: No Lack of Food: Never True Current Housing: I Have Housing Concerned About Future Housing: No Difficulty Paying Gas/Electric Bills: No Difficulty Paying for Meds: No Currently Unemployed: No Education: Associate Degree Difficulty w/ Childcare or Family Care: No Gender identity (if verbalized by the patient): Female Spiritual care concerns: No Anes - Eval Final PreProcedure Day of Procedure 08/27/24 13:40 Patient weight: obese Heart: regular rate and rhythm Lungs: decreased breath sounds Airway: Mallampati scale class II Neurological: alert and oriented Last oral intake: >/= 8 hours ASA classification: III Emergent: no Anesthetic plan: proceed Anesthesia type and monitoring: general GIVS and standard monitoring Results Review: All pre-operative results and documents have been reviewed as part of the pre-operative evaluation. Informed Consent: The patient's anesthetic plan and its attendant risks and benefits were discussed with the patient/family/POA. Questions were solicited and answers provided to the satisfaction of the patient/family/POA.
[2024-08-27] MEDS: SIMETHICONE ORAL SUSPENSION 20 MG/0.3 ML 30 ML BOTTLE 1.8 ML PO (13:46)
[2024-08-27] MEDS: LACTATED RINGERS 1,000 ML 150 ML IV CONT (13:46)
--- NOTE | 2024-08-27 13:59 | SUR.PREOP ---
was notified of patients glucose of 71. Patient was asymptomatic and no new orders received
[2024-08-27] MEDS: BENZOCAINE (*SP) 60 ML SPRAY CAN (HURRICAINE) 1 SPRAY MUCOUS MEM (15:05)
--- NOTE | 2024-08-27 15:20 | SUR.OPER ---
EGD completed at 1509,colonoscopy started at 1514.
--- NOTE | 2024-08-27 15:35 | S_PTH ---
PATIENT: Dashawn Doll LOC: [id number] U#:[id number] AGE/SX: 69/F ROOM: 256 RE08/26/[address]: Hazel Roman APRN : 1955 BED: 01 DIS: 08/27/2024 SPEC #: [id number] RECD: 08/28/24 07:40 STATUS: KHUSHI REPorsha #: [id number] PRAVEEN: 08/27/24 15:[address]: Hawk Shane DEPT: [facility] Surgical RECD BY: Myra Rdz ENTERED: 08/28/24 07:41 SP TYPE: Surgical OTHR DR: Danna Rios, MD Hazel Weber APRN Tissues: A - Gastric Biopsy B - Gastric Biopsy C - Colon Polypectomy Procedures: Hematoxylin and Eosin Stain Gross and Microscopic Level 4
--- NOTE | 2024-08-27 15:54 | WPDGIPROGNO ---
Progress Note: A&P Assessment and Plan (1) Cirrhosis: Code(s): K74.60 - Unspecified cirrhosis of liver Status: Acute (2) Iron deficiency anemia: Code(s): D50.9 - Iron deficiency anemia, unspecified Status: Acute Assessment and Plan: See endoscopy and colonoscopy reports. Erosive gastritis could be an explanation for iron deficiency anemia, however for completeness, and capsule endoscopy is already ordered to be done as an outpatient, To rule out small-bowel angiodysplasia or other lesions. He can be safely discharged today with follow-up in GI clinic. The source of intermittent small volume rectal bleeding is the presence of hemorrhoids. Subjective Date/time seen: 08/27/24 15:54 Objective Data Vital Signs Vital Signs: Vital Signs - 24 hr 08/26/24 16:30 08/26/24 20:00 08/26/24 20:00 Temperature Pulse Rate 73 73 73 Respiratory Rate 16 Blood Pressure Pulse Oximetry 100 Oxygen Delivery Room Air 08/26/24 20:30 08/26/24 21:08 08/27/24 00:00 Temperature 97.8 F Pulse Rate 73 73 Respiratory Rate 16 Blood Pressure 132/65 Pulse Oximetry 100 100 Oxygen Delivery Room Air 08/27/24 04:00 08/27/24 05:13 08/27/24 08:00 Temperature 97.9 F Pulse Rate 75 76 75 Respiratory Rate 18 Blood Pressure 119/50 L Pulse Oximetry 97 Oxygen Delivery 08/27/24 08:15 08/27/24 12:00 08/27/24 13:25 Temperature 97.5 F L Pulse Rate 77 79 Respiratory Rate 16 Blood Pressure 127/54 L Pulse Oximetry 100 Oxygen Delivery Room Air Room Air 08/27/24 15:42 Temperature Pulse Rate 79 Respiratory Rate 17 Blood Pressure 120/55 L Pulse Oximetry 100 Oxygen Delivery Room Air Intake/Output Intake/Output: Intake & Output 08/24/24 08/25/24 08/26/24 08/27/24 23:59 23:59 23:59 23:59 Intake Total 1250 3317.5 2199 2084 Output Total 1350 Balance 1250 1967.5 2199 2084 Meds/Results Medications: Active Medications Generic Name Dose Route Start Last Admin Trade Name Freq PRN Reason Stop Dose Admin Acetaminophen 650 mg 08/24/24 20:24 08/26/24 08:13 Acetaminophen 325 Mg Tablet PO 650 mg Q4H PRN Administration Mild Pain (1-3) or Fever Dextrose 12.5 gm 08/25/24 09:23 Dextrose 50% 25 Gm/50 Ml Syringe IV PUSH PRN PRN Hypoglycemia Protocol Glucagon 1 mg 08/25/24 09:23 Glucagon For Inj 1 Mg Vial IM PRN PRN Hypoglycemia Protocol Glucose 15 gm 08/25/24 09:23 Glucose Oral Gel 15 Gm Of Glucse In 37.5 Gm Tube PO PRN PRN Hypoglycemia Protocol Hydromorphone HCl 0.5 mg 08/25/24 09:23 Hydromorphone Hcl Inj (*Crx) 2 Mg/Ml Vial IV PUSH Q3H PRN Pain Rated 7-10 Lactated Ringer's 1,000 mls @ 125 mls/hr 08/24/24 20:25 08/27/24 08:13 Lr - Lactated Ringers Iv IV CONT Not Given .Q8H YOUSIF Dextrose 1,000 mls @ 100 mls/hr 08/25/24 09:23 Dextrose 5% 1,000 Ml IVPB PRN PRN Hypoglycemia Protocol Lactated Ringer's 1,000 mls @ 150 mls/hr 08/27/24 13:40 08/27/24 15:40 Lr - Lactated Ringers Iv IV CONT 150 mls/hr .Q6H40M YOUSIF Infusion Insulin Aspart 2 - 5 units 08/25/24 12:00 08/27/24 12:14 Insulin Aspart (*Bkc) 100 Units/Ml SUB-Q Not Given TIDWM [facility] Protocol Ondansetron HCl 4 mg 08/24/24 20:24 08/24/24 20:51 Ondansetron Inj 4 Mg/2 Ml Vial IV PUSH 4 mg Q4H PRN Administration Nausea Sertraline HCl 50 mg 08/26/24 09:00 08/27/24 08:13 Sertraline Hcl 50 Mg Tablet PO Not Given DAILY [facility] Radiology Results: ITS Impressions Abdomen/Pelvis CTA 08/24/24 19:53 IMPRESSION: No active GI bleeding detected. Hepatosplenomegaly. Cirrhosis with portal hypertension. Labs Labs: Laboratory Results - last 24 hr 08/26/24 08/26/24 08/27/24 16:54 20:36 05:13 WBC 4.5 RBC 3.18 L Hgb 7.7 L Hct 26.2 L MCV 82.4 MCH 24.2 L MCHC 29.4 L RDW 16.4 H Plt Count 141 L MPV 8.7 Sodium 140 Potassium 4.1 Chloride 107 Carbon Dioxide 25 Anion Gap 8 BUN 8 Creatinine 0.66 L Estim Creat Clear Calc 89 Estimated GFR > 60 Glucose 107 POC Capillary Glucose 86 99 Calcium 9.2 Magnesium 1.7 Total Bilirubin 1.0 AST 48 H ALT 20 Alkaline Phosphatase 127 H Total Protein 7.5 Albumin 3.7 08/27/24 08/27/24 08/27/24 08:16 13:14 13:34 WBC RBC Hgb Hct MCV MCH MCHC RDW Plt Count MPV Sodium Potassium Chloride Carbon Dioxide Anion Gap BUN Creatinine Estim Creat Clear Calc Estimated GFR Glucose POC Capillary Glucose 110 H 87 71 Calcium Magnesium Total Bilirubin AST ALT Alkaline Phosphatase Total Protein Albumin 08/27/24 15:51 WBC RBC Hgb Hct MCV MCH MCHC RDW Plt Count MPV Sodium Potassium Chloride Carbon Dioxide Anion Gap BUN Creatinine Estim Creat Clear Calc Estimated GFR Glucose POC Capillary Glucose 76 Calcium Magnesium Total Bilirubin AST ALT Alkaline Phosphatase Total Protein Albumin
--- NOTE | 2024-08-27 16:35 | P.DS_ITS ---
DS: Admitting Diagnosis Discharge Date 08/27/2024 Admitting Diagnosis anemia DS: Discharge Diagnosis Discharge Diagnosis (1) Anemia: Code(s): D64.9 - Anemia, unspecified Status: Acute (2) Bloody stool: Code(s): K92.1 - Melena Status: Acute (3) Diabetes: Code(s): E11.9 - Type 2 diabetes mellitus without complications Status: Acute Assessment and Plan: * holding metformin * low-dose SSI * currently on a clear liquid diet can have diabetic able to advance * Accu-Cheks a.c. HS * hypoglycemic protocol (4) Cirrhosis: Code(s): K74.60 - Unspecified cirrhosis of liver Status: Acute DS: Summary Hospital Course Reason for hospitalization: Anemia/Concerns for GI bleed Hospital Course: Admission: Patient was a 69-year-old female who presents to [facility] ER on 08/24/2024 with a report of low hemoglobin. History of hypercholesterolemia, generalized anxiety disorder, depression, hypertension, remote alcohol use disorder. She had routine labs drawn with her PCP 3 days [employer], she was notified on day of admission her hemoglobin was 7.6. Hemoglobin in March was 12. She reports since April 2024 she has had intermittent lower abdominal pain and bloating and bright red rectal bleeding. As of late, her stools are dark brown. No nausea or vomiting. Of note, she had a rectal exam performed at PCPs office initially which was guaiac positive. Since March she has been taking 750 mg of ibuprofen daily for arthritis. In ER: she is hemodynamically stable breathing well on room air. Hemoglobin 6.6. 2 units of PRBCs ordered. CTA abdomen pelvis did not detect GI bleed. Hepato splenomegaly with cirrhosis with portal hypertension is present. She was given Protonix 40 mg IV x1, started on LR 125 cc/hour. Hospital Course: Patient was admitted to the medical unit for further evaluation and treatment of possible acute blood loss from GI bleed, GI was consulted and patient was scheduled for a EGD/colonoscopy. I continued to trend patient H&H which remained stable and patient denied any further blood in stool. I continued with PPI BID and had started Ferrous sulfate for her iron deficiency. Patient EGD/Colonoscopy did not reveal any active bleed and gastritis however a polyp was removed and sent for analysis. Patient tolerated procedure well and had no acute issues following. Patient was advised to continue her PPI at home and recommended ETOH cessation. Patient discharged to home with plans for outpatient capsule procedure for further investigation. Status at Discharge Functional status at discharge: independent ambulation Overall status at discharge: patient is back to baseline Time Spent with Patient Time attestation: Total time spent providing and/or coordinating discharge services: Time spent: Greater than 30 minutes Exam Const: General: comfortable and no acute distress Other: A&O x3, obese HENMT: Mouth: Yes moist mucous membranes Eyes: Pupils: Equal, round and reactive pupils present Neck: Neck: supple Resp: Effort & Inspection: normal respiratory effort Auscultation: clear to auscultation bilaterally Cardio: Rate: regular rate Rhythm: regular rhythm Heart sounds: no gallops, no murmurs and no rubs GI: Inspection: non-distended Auscultation: normal bowel sounds : General: Yes bladder normal to palpation Bimanual exam- vagina & uterus: bladder normal to palpation Neuro: Cranial nerves: Yes Equal, round and reactive pupils present Speech: normal speech Motor exam (neuro): 5/5 motor strength present throughout Extrem: General: normal to inspection and no edema Psych: Mental Status: mental status grossly normal Affect: normal affect DS: Data Data Completed and Pending Pending studies at discharge: Pending at discharge 08/27/24 15:35 Surgical [PTH] Routine Labs on day of discharge: Labs from last 24 hours 08/27/24 08/27/24 08/27/24 15:51 13:34 13:14 WBC RBC Hgb Hct MCV MCH MCHC RDW Plt Count MPV Sodium Potassium Chloride Carbon Dioxide Anion Gap BUN Creatinine Estim Creat Clear Calc Estimated GFR Glucose POC Capillary Glucose 76 71 87 Calcium Magnesium Total Bilirubin AST ALT Alkaline Phosphatase Total Protein Albumin 08/27/24 08/27/24 08/26/24 08:16 05:13 20:36 WBC 4.5 RBC 3.18 L Hgb 7.7 L Hct 26.2 L MCV 82.4 MCH 24.2 L MCHC 29.4 L RDW 16.4 H Plt Count 141 L MPV 8.7 Sodium 140 Potassium 4.1 Chloride 107 Carbon Dioxide 25 Anion Gap 8 BUN 8 Creatinine 0.66 L Estim Creat Clear Calc 89 Estimated GFR > 60 Glucose 107 POC Capillary Glucose 110 H 99 Calcium 9.2 Magnesium 1.7 Total Bilirubin 1.0 AST 48 H ALT 20 Alkaline Phosphatase 127 H Total Protein 7.5 Albumin 3.7 08/26/24 16:54 WBC RBC Hgb Hct MCV MCH MCHC RDW Plt Count MPV Sodium Potassium Chloride Carbon Dioxide Anion Gap BUN Creatinine Estim Creat Clear Calc Estimated GFR Glucose POC Capillary Glucose 86 Calcium Magnesium Total Bilirubin AST ALT Alkaline Phosphatase Total Protein Albumin Discharge Plan Discharge Attending physician on discharge: Krupa Eduardo Consulting providers: Rochelle Slater; Hawk Shane; Bert Merchant; Victor M Navarrete Discharging Clinician: Hazel Roman Anticipated Discharge Date/Time: 08/27/24 16:26 Patient Disposition: Home Activity: june shower Diet: as tolerated Discharge Instructions: 1). Anemia * Follow-up with GI in their office to set-up a Capsule study for further evaluation of anemia * If you experience severe blood in stool, weakness, dizziness or worsening of symptoms seek medical attention for evaluation * Avoid NSAIDS 2). Gastritis * I have prescribed pantoprazole take as prescribed * advance diet as tolerated * I recommend sustaining from Alcohol Patient Instructions: Antibiotic Form, Gastritis (DC), Diet for Stomach Ulcers and Gastritis (GEN), Anemia (DC) Patient Language: Singaporean Stand Alone Forms: General Discharge Information Follow-up/Referrals: Hawk Shane MD [Physician] - Call for Appointment (Need O/P Capsule study) Discharge Medications: Continued Women's Multivitamin 18 mg-400 mcg- 500 mg-50 mcg tablet 1 tablet PO DAILY pantoprazole 40 mg tablet,delayed release (DR/EC) 40 mg PO QAM Qty: 90 2RF lisinopril 20 mg tablet 20 mg PO DAILY Qty: 90 3RF metformin 500 mg tablet 500 mg PO DAILY Qty: 90 1RF ergocalciferol (vitamin D2) [Vitamin D2] 1,250 mcg (50,000 unit) capsule 1,250 mcg PO WEEKLY Qty: 12 1RF sertraline 50 mg tablet 50 mg PO DAILY Qty: 30 5RF Rx Instructions: tAKE 1 TABLET BY MOUTH ONCE DAILY Date of admission: 08/26/24 14:18 Primary Care Provider: Danna Rios Admitting Provider: Meenakshi Duran Attending physician on admission: Hazel Roman Condition: Stable Quality VTE Prophylaxis VTE prophylaxis: mechanical ordered Hospitalist MIPS Heart Failure (Exclusion) Patient has history of Heart Transplant or Left Ventricular Assistive Device?: No IF YES, STOP HERE Heart Failure (Qualifier) Patient has current or prior documentation of LVEF less than or equal to 40%, or mod/servere depressed LVSF?: No IF NO, STOP HERE
[2024-08-27] MEDS: ACETAMINOPHEN 325 MG TABLET 650 MG PO (16:55)
== END 2024-08-27 18:20 | disposition home or self-care (01) | DRG 378 ==
LOC: ANHED 19:23 → ANH2MED 21:44
PROVIDERS: Internal Medicine Gastroenterology; Physician Assistant; Admitting Provider General Practice; Emergency Provider Student in an Organized Health Care Education/Training Program; PCP Family Medicine; Visit Provider Nurse Practitioner Family
PROC: 0DJ08ZZ Inspection of Upper Intestinal Tract, Via Natural or Artificial Opening Endoscopic (ICD-10-PCS; CPT 45378; principal; 2024-08-27 14:45)
DX: K29.51 Unspecified chronic gastritis with bleeding (principal); D62 Acute posthemorrhagic anemia; K76.6 Portal hypertension; D12.0 Benign neoplasm of cecum; K57.30 Diverticulosis of large intestine without perforation or abscess without bleeding; K64.8 Other hemorrhoids; E66.9 Obesity, unspecified; Z68.39 Body mass index [BMI] 39.0-39.9, adult; D50.9 Iron deficiency anemia, unspecified; K74.60 Unspecified cirrhosis of liver; R16.2 Hepatomegaly with splenomegaly, not elsewhere classified; F10.10 Alcohol abuse, uncomplicated; F41.1 Generalized anxiety disorder; E78.00 Pure hypercholesterolemia, unspecified; E11.9 Type 2 diabetes mellitus without complications; I10 Essential (primary) hypertension; F32.A Depression, unspecified; L57.0 Actinic keratosis; M85.80 Other specified disorders of bone density and structure, unspecified site; Z79.1 Long term (current) use of non-steroidal anti-inflammatories (NSAID); Z79.84 Long term (current) use of oral hypoglycemic drugs; Z79.899 Other long term (current) drug therapy; Z87.891 Personal history of nicotine dependence; Z87.898 Personal history of other specified conditions
CPT/HCPCS: 36415; 36430; 74174; 80053; 82607; 82728; 82746; 82948; 83540; 83550; 83615; 83735; 84443; 84466; 85014; 85018; 85025; 85027; 85046; 85610; 85730; 86850; 86900; 86901; 86923; 88305; 96361; 96374; 96375; 99285; A9270; G0378; J1756; J2003; J2405; J2470; J2704; J7050; J7120; P9016; Q9967

== ENCOUNTER 2024-10-09 06:05 | Outpatient (CLI) | payer MEDICARE, SELFPAY ==
--- OUTSIDE RECORDS SUMMARY | 2024-10-09 06:08 | XMS_ITS | Clinical Summary ---
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
--- NOTE | 2024-10-09 06:34 | SUR.PREOP ---
Patient brought to GI Lab. Instructions for patient undergoing Capsule Endoscopy reviewed with patient. Consent form signed. Sensor array applied to patient's abdomen and connected to recorded. Patient swallowed capsule with 10 ozs of water infused with Simethicone. Patient instructed they may have clear liquids at 0830 this AM and eat or drink at 1030 this AM. Patient instructed to return to GI Lab at 1500 this afternoon for removal of recording device and to call [phone] or to return to the hospital if any nausea and vomiting or abdominal pain is experienced.
--- NOTE | 2024-10-09 14:21 | SUR.PREOP ---
Patient returned to the GI Lab at 1430 for recorder box removal. Patient voiced no complaints. States they have understanding of instructions. Patient left ambulatory.
== END 2024-10-09 06:06 | disposition home or self-care (01) ==
LOC: ANHENDO 06:06
PROVIDERS: PCP Family Medicine; Referring Provider Internal Medicine Gastroenterology; Visit Provider Internal Medicine Gastroenterology
PROC: (CPT 91110; principal; 2024-10-09 07:00)
DX: Z13.810 Encounter for screening for upper gastrointestinal disorder (principal); D50.9 Iron deficiency anemia, unspecified
CPT/HCPCS: 91110

== ENCOUNTER 2024-10-24 02:58 | Day surgery (SDC) | payer MEDICARE, SELFPAY ==
[2024-10-18 14:07] VITALS: BMI 40.3
--- OUTSIDE RECORDS SUMMARY | 2024-10-24 03:01 | XMS_ITS | Clinical Summary ---
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
[2024-10-24 13:39] VITALS: BP 143/60; PULSE 85; RESP 18; TEMP 36.1; O2SAT 98; BMI 40.4
[2024-10-24] MEDS: LACTATED RINGERS 1,000 ML 150 ML IV CONT (13:53)
--- NOTE | 2024-10-24 14:06 | WPDANESEPPF ---
Anes - Initial Pre Proc Eval Procedure: Operation Date: 10/24/24 15:00 Proposed Procedures p Esophagogastroduodenoscopy EGD - Arnoldo Samayoa MD Date/Time: 10/24/24 14:06 Surgeon: Arnoldo Samayoa MD Pre Op Diagnosis: Gastrointestinal hemorrhage, unspecified Patient Data Age: 69 Gender: F Height: 1.68 m Weight: 113.5 kg Last Vital Signs Temp 97 F L 10/24/24 13:39 Pulse 85 10/24/24 13:39 Resp 18 10/24/24 13:39 BP 143/60 H 10/24/24 13:39 Pulse Ox 98 10/24/24 13:39 O2 Del Method Room Air 10/24/24 13:39 Allergies Allergy/AdvReac Type Severity Reaction Status Date / Time No Known Allergies Allergy Verified 10/24/24 13:38 Home Medications ?Medication ?Instructions ?Recorded ?Confirmed ?Type [id number]-[id number] 18 mg-FA 400 1 tablet PO DAILY 01/20/22 10/24/24 History mcg-calcium 500 mg-vit K 50 mcg tablet (Women's Multivitamin) lisinopril 20 mg tablet 20 mg PO DAILY #90 tabs 02/14/24 10/24/24 Rx sertraline 50 mg tablet 50 mg PO DAILY #30 tabs 07/19/24 10/24/24 Rx pantoprazole 40 mg tablet,delayed 40 mg PO QAM #90 tabs 08/27/24 10/24/24 Rx release ergocalciferol (vitamin D2) 1,250 1,250 mcg PO WEEKLY #12 caps 09/18/24 10/24/24 Rx mcg (50,000 unit) capsule (Vitamin D2) metformin 500 mg tablet 500 mg PO DAILY #90 tabs 10/05/24 10/24/24 Rx Patient hx anesthesia problems: none Family hx anesthesia problems: none Results Review: All pre-operative results and documents have been reviewed as part of the pre-operative evaluation. [facility] Past Medical History Medical History GIB (gastrointestinal bleeding) Diabetes Stomach discomfort Bloody stool Actinic keratosis Benign hypertension ALEENA (generalized anxiety disorder) Depression Hypertension Osteopenia Hypercholesterolemia Surgical History Surgical History Hx of dilation and curettage History of rectal polypectomy History of hysteroscopy (~01/17/17) Family History Family History Father Family history of chronic obstructive pulmonary disease Social History Social History Smoking status: Former smoker Tobacco type: cigarettes Second hand tobacco smoke exposure: No Smoking end date: 02/08/96 Alcohol intake: never Alcohol use details: consumes 3 beers weekly Substance use: never Substance use type: does not use Do You Feel Safe in your Home?: Yes Lack of Transportation: No Lack of Food: Never True Current Housing: I Have Housing Concerned About Future Housing: No Difficulty Paying Gas/Electric Bills: No Difficulty Paying for Meds: No Currently Unemployed: No Education: Associate Degree Difficulty w/ Childcare or Family Care: No Living arrangements: with family Gender identity (if verbalized by the patient): Female Spiritual care concerns: No Anes - Eval Final PreProcedure Day of Procedure 10/24/24 14:06 Patient weight: morbidly obese Lungs: normal air movement Airway: Mallampati scale class II Neurological: alert and oriented Last oral intake: >/= 8 hours ASA classification: III Emergent: no Anesthetic plan: proceed Anesthesia type and monitoring: general GIVS and standard monitoring Results Review: All pre-operative results and documents have been reviewed as part of the pre-operative evaluation. HTN, hyperlipidemia, DM, anemia, hx of cirrhosis. Informed Consent: The patient's anesthetic plan and its attendant risks and benefits were discussed with the patient/family/POA. Questions were solicited and answers provided to the satisfaction of the patient/family/POA.
--- NOTE | 2024-10-24 14:10 | PM.HPGS ---
History of Present Illness History of Present Illness Consent: Risks, benefits, and alternatives have been discussed and questions answered. Patient agrees to proceed with procedure. Chief complaint: Gastrointestinal hemorrhage, unspecified Narrative: Dashawn Doll is a 69 year old female with allison, recent capsule endoscopy noted what is seems to be hematin in stomach however she remembers that same day also had epistaxis. Review of Systems Review of Systems: All systems reviewed & are unremarkable except as noted in HPI and below PMFSH Past Medical History Medical History GIB (gastrointestinal bleeding) Diabetes Stomach discomfort Bloody stool Actinic keratosis Benign hypertension ALEENA (generalized anxiety disorder) Depression Hypertension Osteopenia Hypercholesterolemia Surgical History Surgical History Hx of dilation and curettage History of rectal polypectomy History of hysteroscopy (~01/17/17) Family History Family History Father Family history of chronic obstructive pulmonary disease Social History Social History Smoking status: Former smoker Tobacco type: cigarettes Second hand tobacco smoke exposure: No Smoking end date: 02/08/96 Alcohol intake: never Alcohol use details: consumes 3 beers weekly Substance use: never Substance use type: does not use Do You Feel Safe in your Home?: Yes Lack of Transportation: No Lack of Food: Never True Current Housing: I Have Housing Concerned About Future Housing: No Difficulty Paying Gas/Electric Bills: No Difficulty Paying for Meds: No Currently Unemployed: No Education: Associate Degree Difficulty w/ Childcare or Family Care: No Living arrangements: with family Gender identity (if verbalized by the patient): Female Spiritual care concerns: No Meds Home Medications and Allergies Home Medications ?Medication ?Instructions ?Recorded ?Confirmed ?Type [id number] 18 mg-FA 400 1 tablet PO DAILY 01/20/22 10/24/24 History mcg-calcium 500 mg-vit K 50 mcg tablet (Women's Multivitamin) lisinopril 20 mg tablet 20 mg PO DAILY #90 tabs 02/14/24 10/24/24 Rx sertraline 50 mg tablet 50 mg PO DAILY #30 tabs 07/19/24 10/24/24 Rx pantoprazole 40 mg tablet,delayed 40 mg PO QAM #90 tabs 08/27/24 10/24/24 Rx release ergocalciferol (vitamin D2) 1,250 1,250 mcg PO WEEKLY #12 caps 09/18/24 10/24/24 Rx mcg (50,000 unit) capsule (Vitamin D2) metformin 500 mg tablet 500 mg PO DAILY #90 tabs 10/05/24 10/24/24 Rx Allergies Allergy/AdvReac Type Severity Reaction Status Date / Time No Known Allergies Allergy Verified 10/24/24 13:38 Vital Signs Vital Signs - 24 hr 10/24/24 13:39 Temperature 97 F L Pulse Rate 85 Respiratory Rate 18 Blood Pressure 143/60 H Pulse Oximetry 98 Oxygen Delivery Room Air Exam Const: General: comfortable and no acute distress HENMT: Face/Nose/Sinus: Normal nares present Eyes: General: appearance normal, both eyes and all related structures Neck: Neck: no JVD Resp: Auscultation: clear to auscultation bilaterally Cardio: Rate: regular rate Rhythm: regular rhythm GI: Inspection: non-distended GI Palp: Yes Soft to palpation Skin: General skin exam: normal color Neuro: Speech: normal speech Extrem: General: normal to inspection Psych: Mental Status: mental status grossly normal Assessment and Plan Assessment and plan (1) GIB (gastrointestinal bleeding): Code(s): K92.2 - Gastrointestinal hemorrhage, unspecified Status: Acute Assessment and Plan: egd to assess if sign of ugib
[2024-10-24 14:16] VITALS: BP 72/30; PULSE 78; RESP 23; O2SAT 97
[2024-10-24 14:21] VITALS: BP 111/58; PULSE 73; RESP 16; O2SAT 99
[2024-10-24 14:26] VITALS: BP 113/57; PULSE 71; RESP 16; O2SAT 100
[2024-10-24 14:36] VITALS: BP 114/60; PULSE 73; RESP 21; O2SAT 100
[2024-10-24 14:46] VITALS: BP 121/61; PULSE 70; RESP 20; O2SAT 100
== END 2024-10-24 14:54 | disposition home or self-care (01) ==
PROVIDERS: PCP Family Medicine; Referring Provider Internal Medicine Gastroenterology; Visit Provider Internal Medicine Gastroenterology
PROC: 0DJ08ZZ Inspection of Upper Intestinal Tract, Via Natural or Artificial Opening Endoscopic (ICD-10-PCS; CPT 43235; principal; 2024-10-24 15:00)
DX: K29.70 Gastritis, unspecified, without bleeding (principal); D50.9 Iron deficiency anemia, unspecified; Z87.891 Personal history of nicotine dependence; E66.01 Morbid (severe) obesity due to excess calories; Z68.41 Body mass index [BMI] 40.0-44.9, adult
CPT/HCPCS: 43235; 82948; J7120